=== PATIENT | female | born 1935 | race Hispanic/Latino ===

== ENCOUNTER 2016-12-19 19:38 | Inpatient (IN) | payer MEDICARE, OTHER ==
[2016-12-19 19:38] VITALS: BMI 28.7
--- NOTE | 2016-12-19 20:56 | C.PDOC ---
History Of Present Illness 81 y/o female presents to ED with complaints of dizziness since yesterday while she was walking. Patient denies nausea, vomiting, ringing in ear, chest pain, palpitation, sob or any other complaints at this time. Time Seen by Provider: 12/19/16 20:56 Chief Complaint (Nursing): Dizziness/Lightheaded History Per: Patient History/Exam Limitations: no limitations Onset/Duration Of Symptoms: Days Current Symptoms Are (Timing): Still Present Activity At Onset Of Symptoms: Walking Associated Symptoms Preceding Syncopal Episode: No Predromal Symptoms (Sudden Onset) Seizure Or Post-ictal Symptoms: None Possible Causative Factor(s): Vertigo, Lightheaded W/Standing - Symptoms Of CVA Associated Symptoms: Decreased Ability To Walk (due to dizziness). denies: Impaired Speech, Seizure Activity Recent Aspirin Use: No Current Coumadin Use?: No Recent Head Trauma: No Past Medical History Reviewed: Historical Data, Nursing Documentation, Vital Signs Vital Signs: Last Vital Signs Temp 97.9 F 12/19/16 19:41 Pulse 72 12/19/16 19:41 Resp 20 12/19/16 19:41 BP 136/77 12/19/16 19:41 Pulse Ox 98 12/19/16 21:49 - Medical History PMH: Anxiety, Arthritis, Back Problems, HTN Denies: Chronic Kidney Disease Surgical History: Cholecystectomy - [facility] TETANUS TOXOID ADMINIST (09/15/14) Family History: States: No Known Family Hx - Social History Hx Tobacco Use: No Hx Alcohol Use: No Hx Substance Use: No - Immunization History Hx Tetanus Toxoid Vaccination: No Hx Influenza Vaccination: No Hx Pneumococcal Vaccination: No Review Of Systems Constitutional: Negative for: Fever, Chills ENT: Negative for: Throat Pain Cardiovascular: Negative for: Chest Pain, Palpitations Respiratory: Negative for: Shortness of Breath Gastrointestinal: Negative for: Nausea, Vomiting Genitourinary: Negative for: Dysuria Musculoskeletal: Negative for: Back Pain Skin: Negative for: Rash Neurological: Positive for: Dizziness. Negative for: Weakness, Numbness Psych: Negative for: Anxiety Physical Exam - Physical Exam Appears: Non-toxic, No Acute Distress Skin: Warm, Dry Head: Normacephalic Eye(s): bilateral: Normal Inspection, Other (Arcus senulus) Oral Mucosa: Moist Neck: Supple Chest: Symmetrical Cardiovascular: Rhythm Regular Respiratory: No Rales, No Rhonchi, No Wheezing Gastrointestinal/Abdominal: Soft, No Tenderness, No Guarding, No Rebound Back: No CVA Tenderness Extremity: No Tenderness Extremity: Bilateral: Atraumatic, No Pedal Edema, Normal Color And Temperature Pulses: Left Dorsalis Pedis: Normal, Right Dorsalis Pedis: Normal Neurological/Psych: Oriented x3, Normal Speech, Normal Cognition, Other (No nystagmus, Negative romberg) Gait: Unsteady ED Course And Treatment - Laboratory Results Result Diagrams: 12/19/16 21:03 12/19/16 21:03 ECG: Interpreted By Me, Viewed By Me ECG Rhythm: Sinus Rhythm (74), R BBB, PVC, Nonspecific Changes O2 Sat by Pulse Oximetry: 98 (RA) Pulse Ox Interpretation: Normal NIHSS Stroke Scale - Date/Time Evaluation Performed Date Performed: 12/19/16 Time Performed: 21:00 When Was NIHSS Performed: Baseline - How Severe is the Stoke Level of Consciousness: 0=Alert LOC to Questions: 0=Both comments correct LOC to commands: 0=Obeys both correctly Best Gaze: 0=Normal Visual: 0=No visual loss Facial: 0=Normal Motor Arm - Left: 0=No drift Motor Arm - Right: 0=No drift Motor Leg - Left: 0=No drift Motor Leg - Right: 0=No drift Limb Ataxia: 0=Absent Sensory: 0=Normal Best Language: 0=No aphasia Dysarthia: 0=Normal articulation Extinction & Inattention (Neglect): 0=Normal, no object Score: 0 Severity Of Stroke: 0= No Stroke Disposition Discussed With : Cuauhtemoc Wallace Comment: accepted the pt on his service and took over the care at 11:15 PM Doctor Will See Patient In The: ED Counseled Patient/Family Regarding: Studies Performed, Diagnosis - Disposition Disposition: HOSPITALIZED Disposition Time: 20:56 Condition: FAIR Forms: [facility] (Upper Sorbian) - POA Present On Arrival: None - Clinical Impression Clinical Impression: Dizziness, Vertigo, Ambulatory dysfunction - Scribe Statement The provider has reviewed the documentation as recorded by the Rayshawnibchip Pablo All medical record entries made by the Scribe were at my direction and personally dictated by me. I have reviewed the chart and agree that the record accurately reflects my personal performance of the history, physical exam, medical decision making, and the department course for this patient. I have also personally directed, reviewed, and agree with the discharge instructions and disposition. Decision To Admit - Pt Status Changed To: Hospital Disposition Of: Inpatient - Admit Certification Admit to Inpatient:: After my assessment, the patient will require hospitalization for at least two midnights. This is because of the severity of symptoms shown, intensity of services needed, and/or the medical risk in this patient being treated as an outpatient. - InPatient: Physician Admission Certification: I certify that this patient requires 2 or more midnights of care for the following reason:: After my assessment, the patient will require hospitalization for at least two midnights. This is because of the severity of symptoms shown, intensity of services needed, and/or the medical risk in this patient being treated as an outpatient. - . Bed Request Type: Regular Admitting Physician: Cuauhtemoc Wallace Patient Diagnosis: Dizziness, Vertigo, Ambulatory dysfunction
[2016-12-19 21:08] LABS: BASO % 0.6 % (0.0-2.0); EOS # 0.2 K/uL (0.0-0.7); EOS % 2.8 % (0.0-4.0); LYMPH # 2.4 K/uL (1.0-4.3); LYMPH % 37.4 % (20.0-40.0); MEAN CELL VOLUME 96.2 fL (81.0-99.0); MEAN CORPUSCULAR HEMOGLOBIN 31.3 pg (27.0-31.0); MEAN CORPUSCULAR HGB CONC 32.5 g/dL (33.0-37.0); MEAN PLATELET VOLUME 8.2 fL (7.2-11.7); MONO # 0.8 K/uL (0.0-0.8); MONO % 11.9 % (0.0-10.0); RED CELL DISTRIBUTION WIDTH 13.8 % (11.5-14.5); WHITE BLOOD COUNT 6.4 K/uL (4.8-10.8)
[2016-12-19] MEDS: Sodium Chloride 0.9% 1,000 ML IV SCH (21:10)
[2016-12-19 21:12] LABS: URINE BILIRUBIN NEGATIVE (NEGATIVE); URINE BLOOD 1+ (NEGATIVE); URINE COLOR Straw (YELLOW); URINE GLUCOSE (UA) NORMAL (Normal); URINE KETONE NEGATIVE (NEGATIVE); URINE LEUKOCYTE ESTERASE 1+ Leu/uL (Negative); URINE PROTEIN NEGATIVE (NEGATIVE); URINE UROBILINOGEN NORMAL mg/dL (0.2-1.0); WBC URINE 3 /hpf (0-5)
[2016-12-19 21:15] LABS: RBC URINE 4 /hpf (0-3)
[2016-12-19 21:29] LABS: CHLORIDE 100 mmol/L (98-107)
[2016-12-19 21:30] LABS: SODIUM 135 mmol/L (132-148)
[2016-12-19 21:31] LABS: INR 1.1
[2016-12-19 21:32] LABS: ALB/GLOB RATIO 0.9 (1.0-2.1); AST/SGOT 62 U/L (14-36); BILIRUBIN,TOTAL 0.9 mg/dL (0.2-1.3); CARBON DIOXIDE 25 mmol/L (22-30); GFR AFRICAN-AMERICAN > 60; TOTAL PROTEIN 7.6 g/dL (6.3-8.3)
[2016-12-19 21:33] LABS: ALKALINE PHOSPHATASE 70 U/L (38-126); ALT/SGPT 25 U/L (9-52); BLOOD UREA NITROGEN 18 mg/dL (7-17); CALCIUM 8.9 mg/dl (8.6-10.4); GLUCOSE,RANDOM 96 mg/dL (65-105)
--- NOTE | 2016-12-19 21:57 | CT ---
EXAM: CT Head Without Intravenous Contrast CLINICAL HISTORY: 81 years old, female; Signs and symptoms; Dizziness; Additional info: R/O bleed, dizziness TECHNIQUE: Axial computed tomography images of the head/brain without intravenous contrast. All CT scans at this facility use one or more dose reduction techniques, viz.: automated exposure control; ma/kV adjustment per patient size (including targeted exams where dose is matched to indication; i.e. head); or iterative reconstruction technique. COMPARISON: CT - HEAD W/O CONTRAST 11/01/2014 10:53:18 PM FINDINGS: Brain: Mild atrophy. No intracranial hemorrhage. Small dural calcifications and/or calcified meningiomas along falx, RIGHT occipital region, stable. Few scattered foci of decreased attenuation within periventricular/subcortical white matter. No definite edema. Ventricles: No hydrocephalus. Bones/joints: No acute fracture. Soft tissues: Unremarkable. Vasculature: Mild atherosclerotic disease of intracranial arteries. Sinuses: No acute sinusitis. Mastoid air cells: No mastoid effusion. Orbits: Unremarkable as visualized. IMPRESSION: 1. Nonspecific white matter changes. Acute infarction may be CT occult within first 24 hours. If a focal deficit persists, consider followup CT or MRI for further evaluation. 2. Incidental/non-acute findings are described above.
[2016-12-20] MEDS ORDERED: Albuterol-Ipratrop 3 mg / 0.5 (3 ml) UD INH STA (00:40)
--- NOTE | 2016-12-20 01:01 | CP.PCM.HP ---
<Gumaro RYANLupis - Last Filed: 12/20/16 01:06> History of Present Illness - History of Present Illness History of Present Illness: cc: " I feel dizzy" Patient is an 81 year old female with PMHx of HTN and vertigo who presents with complaint of dizziness. Patient states this dizziness began yesterday while sitting at home and was worsened with walking. Patient states she was on meclizine in the past but has not been taking it for some time as her symptoms had resolved. Patient states she took a meclizine yesterday but did not have any relief of symptoms which prompted her ER visit today. Patient denies falls but states her body feels unsteady. Patient also complains of sore throat and states she has been feeling ill for the past week. Patient denies cough, shortness of breath. Patient lives with a friend who is also sick. Patient states she took Vicks Formula 44 for her symptoms but has not had much relief. Patient denies palpitations, chest pain, nausea, vomiting, dysuria, abdominal pain. PMD: Yesy PMHx: HTN, vertigo Meds: losartan 25, pt unsure of dose of carvedilol, multivitamins PSHx: cholecystectomy FamHx: denies Social: lives with friend, ambulates without assistive devices, independent in ADLs, denies tobacco, alcohol, drugs Present on Admission - Present on Admission Any Indicators Present on Admission: No Review of Systems - Constitutional Constitutional: absent: Chills, Fever - EENT Eyes: absent: Change in Vision Nose/Mouth/Throat: absent: Nasal Congestion, Sinus Pressure - Cardiovascular Cardiovascular: absent: Chest Pain, Dyspnea, Edema, Lightheadedness, Palpitations, Pedal Edema, Syncope - Respiratory Respiratory: Other (chest tightness). absent: Cough, Excessive Mucous Production - Gastrointestinal Gastrointestinal: absent: Abdominal Pain, Nausea, Vomiting - Genitourinary Genitourinary: absent: Difficulty Urinating - Musculoskeletal Musculoskeletal: absent: Back Pain - Neurological Neurological: Disequilibrium, Dizziness. absent: Focal Weakness Past Patient History - Past Medical History & Family History Past Medical History?: Yes - Past Social History Smoking Status: Never Smoked - CARDIAC Hx Hypertension: Yes - PULMONARY Hx Respiratory Disorders: No - NEUROLOGICAL Hx Neurological Disorder: No - HEENT Hx Cataracts: Yes (with surgery long time ago) - RENAL Hx Chronic Kidney Disease: No - ENDOCRINE/METABOLIC Hx Endocrine Disorders: No - HEMATOLOGICAL/ONCOLOGICAL Hx Blood Disorders: No - INTEGUMENTARY Hx Dermatological Problems: No - MUSCULOSKELETAL/RHEUMATOLOGICAL Hx Arthritis: Yes - GASTROINTESTINAL Hx Gastrointestinal Disorders: No - GENITOURINARY/GYNECOLOGICAL Hx Genitourinary Disorders: No - PSYCHIATRIC Hx Anxiety: Yes Hx Substance Use: No - SURGICAL HISTORY Hx Cholecystectomy: Yes - ANESTHESIA Hx Anesthesia: No Hx Anesthesia Reactions: No Hx Malignant Hyperthermia: No Meds Allergies/Adverse Reactions: Allergies Allergy/AdvReac Type Severity Reaction Status Date / Time No Known Allergies Allergy Verified 12/19/16 19:46 Physical Exam - Constitutional Appears: Non-toxic, No Acute Distress - Head Exam Head Exam: ATRAUMATIC, NORMOCEPHALIC - Eye Exam Eye Exam: EOMI. absent: Nystagmus Additional comments: cataracts b/l - ENT Exam ENT Exam: Mucous Membranes Moist - Respiratory Exam Respiratory Exam: Wheezes, NORMAL BREATHING PATTERN. absent: Respiratory Distress - Cardiovascular Exam Cardiovascular Exam: REGULAR RHYTHM, +S1, +S2 - GI/Abdominal Exam GI & Abdominal Exam: Normal Bowel Sounds, Soft. absent: Tenderness - Extremities Exam Extremities exam: Positive for: normal inspection. Negative for: calf tenderness, pedal edema - Neurological Exam Neurological exam: Alert, CN II-XII Intact, Normal Gait Additional comments: Rhomberg negative H in space induces dizziness - Psychiatric Exam Psychiatric exam: Normal Affect - Skin Skin Exam: Dry, Warm Results - Vital Signs Recent Vital Signs: Last Vital Signs Temp 98 F 12/20/16 00:35 Pulse 68 12/20/16 00:35 Resp 16 12/20/16 00:35 BP 125/68 12/20/16 00:35 Pulse Ox 98 12/20/16 00:35 - Labs Result Diagrams: 12/19/16 21:03 12/19/16 21:03 Assessment & Plan (1) Dizziness Assessment and Plan: Patient with prior episode of vertigo in 2014 CT head with non-specific white matter changes, mild atrophy, no hydrocephalus, no hemorrhage Orthostatics: laying: HR 65, BP 126/59 sitting: HR 68, BP 148/63 standing: HR 71, BP 149/64 will rule out cardiac origin will check new echo will check troponins 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 Wallace Status: Acute <Cuauhtemoc Wallace - Last Filed: 12/20/16 06:26> Results - Vital Signs Recent Vital Signs: Last Vital Signs Temp 97.5 F L 12/20/16 00:56 Pulse 68 12/20/16 00:56 Resp 20 12/20/16 00:56 BP 137/77 12/20/16 00:56 Pulse Ox 99 12/20/16 03:57 - Labs Result Diagrams: 12/19/16 21:03 12/19/16 21:03 Labs: Laboratory Results - last 24 hr 12/20/16 02:10 Troponin I < 0.0120 Assessment & Plan - Date & Time Date: 12/20/16 (I have seen and examined the patient. I agree with the findings and plan of care as documented by Dr. Valiente. Patient with dizziness. CT head negative. Meclizine for now. PT/OT. Also with wheeze. Duonebs. Follow up official CXR report. Monitor for acute changes.) Time: 06:25 Attending/Attestation - Attestation I have personally seen and examined this patient.: Yes I have fully participated in the care of the patient.: Yes I have reviewed all pertinent clinical information: Yes
[2016-12-20] MEDS: Sodium Chloride 0.9% 1,000 ML IV SCH ×2 (06:50→17:44)
[2016-12-20 07:11] LABS: CHLORIDE 105 mmol/L (98-107); POTASSIUM 4.5 mmol/L (3.6-5.2); SODIUM 141 mmol/L (132-148)
[2016-12-20 07:14] LABS: ALB/GLOB RATIO 0.9 (1.0-2.1); ALKALINE PHOSPHATASE 63 U/L (38-126); ALT/SGPT 36 U/L (9-52); AST/SGOT 33 U/L (14-36); BILIRUBIN,TOTAL 0.6 mg/dL (0.2-1.3); BLOOD UREA NITROGEN 12 mg/dL (7-17); CALCIUM 8.3 mg/dl (8.6-10.4); CARBON DIOXIDE 28 mmol/L (22-30); GFR AFRICAN-AMERICAN > 60; GLUCOSE,RANDOM 88 mg/dL (65-105); TOTAL PROTEIN 6.5 g/dL (6.3-8.3)
[2016-12-20 07:15] LABS: BASO % 0.5 % (0.0-2.0); EOS # 0.1 K/uL (0.0-0.7); EOS % 2.6 % (0.0-4.0); HEMATOCRIT 36.9 % (34.0-47.0); LYMPH # 2.1 K/uL (1.0-4.3); LYMPH % 37.1 % (20.0-40.0); MEAN CELL VOLUME 96.7 fL (81.0-99.0); MEAN CORPUSCULAR HGB CONC 33.1 g/dL (33.0-37.0); MEAN PLATELET VOLUME 7.9 fL (7.2-11.7); MONO # 0.6 K/uL (0.0-0.8); MONO % 10.7 % (0.0-10.0); RED CELL DISTRIBUTION WIDTH 13.4 % (11.5-14.5); WHITE BLOOD COUNT 5.6 K/uL (4.8-10.8)
[2016-12-20] MEDS: Albuterol-Ipratrop 3 mg / 0.5 (3 ml) UD INH PRN ×2 (07:28→12:50)
--- NOTE | 2016-12-20 08:49 | RAD ---
PROCEDURE: CHEST RADIOGRAPH, 1 VIEW HISTORY: SOB COMPARISON: 09/14/2015. FINDINGS: LUNGS: There are low lung volumes. There is a linear scar in the right lower lobe. No focal consolidation. PLEURA: No pneumothorax or pleural fluid seen. CARDIOVASCULAR: Normal. OSSEOUS STRUCTURES: No significant abnormalities. VISUALIZED UPPER ABDOMEN: Normal. OTHER FINDINGS: None. IMPRESSION: No active pulmonary disease.
[2016-12-20] MEDS: Enoxaparin 30 mg Syringe SC SCH (10:51)
[2016-12-20 16:20] VITALS: RESP 20
--- NOTE | 2016-12-20 21:15 | CP.PCM.PN ---
Subjective - Date & Time of Evaluation Date of Evaluation: 12/20/16 Time of Evaluation: 21:13 - Subjective Subjective: PGY1 Note for Dr. Castro HPI: 81 F Belgian speaking patient examined at bedside. Patient presents with episodes of dizziness. The episodes began yesterday afternoon when she tried to stand up from a seated position. Patient states that the episodes feel as if she is losing her balance and feeling like she will fall over. When ask if the room starts to spin the patient stated that she only feels as if she cant steady herself. Patient denies taking any medications for the episodes at home. Standing and walking make the symptoms worse. Patient also complains of left leg pain. It began "a few months ago" and has been waxing and waning. There are no alleviating or remitting factors noted.Patient describes the pain as cramping. Patient denies n/v/f/c/SOB/pain in chest/changes in vision. Objective - Vital Signs/Intake and Output Vital Signs (last 24 hours): Temp Pulse Resp BP Pulse Ox 98.2 F 88 20 125/54 L 95 12/20/16 16:00 12/20/16 16:00 12/20/16 16:00 12/20/16 16:00 12/20/16 16:00 Intake and Output: 12/20/16 12/21/16 18:59 06:59 Intake Total 400 Balance 400 - Medications Medications: Current Medications Albuterol/Ipratropium (Duoneb 3 Mg/0.5 Mg (3 Ml) Ud) 3 ml INH RQ4 PRN PRN Reason: Shortness of Breath Last Admin: 12/20/16 12:50 Dose: 3 ml Enoxaparin Sodium (Lovenox) 30 mg SC DAILY [facility] Last Admin: 12/20/16 10:51 Dose: 30 mg Famotidine (Pepcid) 20 mg PO DAILY [facility] Last Admin: 12/20/16 09:24 Dose: 20 mg Sodium Chloride (Sodium Chloride 0.9%) 1,000 mls @ 100 mls/hr IV .Q10H [facility] Last Admin: 12/20/16 17:44 Dose: 100 mls/hr Losartan Potassium (Cozaar) 25 mg PO DAILY [facility] Last Admin: 12/20/16 09:24 Dose: 25 mg Meclizine HCl (Antivert) 25 mg PO TID [facility] Last Admin: 12/20/16 17:43 Dose: 25 mg Pneumococcal Polyvalent Vaccine (Pneumovax 23 Vaccine) 0.5 ml IM .ONCE ONE Stop: 12/22/16 10:01 - Labs Labs: 12/20/16 06:51 12/20/16 06:50 PT 11.9 SECONDS (9.7-12.2) 12/19/16 21:16 INR 1.1 12/19/16 21:16 APTT 31 SECONDS (21-34) 12/19/16 21:16 - Constitutional Appears: Well, No Acute Distress - Head Exam Head Exam: ATRAUMATIC, NORMAL INSPECTION, NORMOCEPHALIC - Eye Exam Eye Exam: EOMI - ENT Exam ENT Exam: Mucous Membranes Moist - Respiratory Exam Respiratory Exam: Clear to Ausculation Bilateral, NORMAL BREATHING PATTERN - Cardiovascular Exam Cardiovascular Exam: REGULAR RHYTHM - GI/Abdominal Exam GI & Abdominal Exam: Soft. absent: Distended, Guarding, Tenderness - Extremities Exam Extremities Exam: Calf Tenderness (l. leg), Tenderness (l. leg). 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
[2016-12-21] MEDS: Sodium Chloride 0.9% 1,000 ML IV SCH ×4 (04:00→23:15)
[2016-12-21] MEDS: Albuterol-Ipratrop 3 mg / 0.5 (3 ml) UD INH PRN (07:10)
--- NOTE | 2016-12-21 10:14 | MRI ---
PROCEDURE: MRI BRAIN WITHOUT CONTRAST HISTORY: R/O cerebellar stroke COMPARISON: CT head without contrast from 12/19/2016. TECHNIQUE: Multiplanar, multisequence MR images of the brain were obtained without intravenous contrast enhancement. FINDINGS: HEMORRHAGE: None DWI: No evidence of an acute or early subacute infarction. BRAIN PARENCHYMA: There are moderate chronic microangiopathic changes. There is no mass, mass effect or abnormal extra-axial fluid collection. The midline sagittal structures are normal. There is a partially empty sella. VENTRICLES: There is moderate age-related global parenchymal volume loss and proportionate enlargement of the ventricles and cortical sulci. There are prominent perivascular spaces in the basal ganglia. CRANIUM: There is normal bone marrow signal pattern. ORBITS: Grossly unremarkable. PARANASAL SINUSES/MASTOIDS: Predominantly clear. VASCULAR SYSTEM: There are normal signal voids in the larger intracranial arteries. OTHER FINDINGS: None. IMPRESSION: 1. No acute intracranial abnormality. Specifically, no evidence of acute infarction. 2. Moderate chronic microangiopathic changes and moderate age-related global parenchymal volume loss.
[2016-12-21] MEDS: Enoxaparin 30 mg Syringe SC SCH (10:50)
--- NOTE | 2016-12-21 16:29 | CP.PCM.PN ---
Subjective - Date & Time of Evaluation Date of Evaluation: 12/21/16 Time of Evaluation: 16:26 - Subjective Subjective: PGY-[address] Castro HPI: 81 F Guinean speaking patient seen at beside. Patient complains of dizziness whenever she sits up or gets up to go to the bathroom. Patient reports no dizziness when reclining in bed. Patient reports no other complaints and no adverse events overnight. Objective - Vital Signs/Intake and Output Vital Signs (last 24 hours): Temp Pulse Resp BP Pulse Ox 98.4 F 72 20 131/47 L 94 L 12/21/16 15:00 12/21/16 15:00 12/21/16 15:00 12/21/16 15:00 12/21/16 15:00 Intake and Output: 12/21/16 12/21/16 06:59 18:59 Intake Total 2150 Output Total 500 Balance 1650 - Medications Medications: Current Medications Albuterol/Ipratropium (Duoneb 3 Mg/0.5 Mg (3 Ml) Ud) 3 ml INH RQ4 PRN PRN Reason: Shortness of Breath Last Admin: 12/21/16 07:10 Dose: 3 ml Enoxaparin Sodium (Lovenox) 30 mg SC DAILY [facility] Last Admin: 12/21/16 10:50 Dose: 30 mg Famotidine (Pepcid) 20 mg PO DAILY [facility] Last Admin: 12/21/16 10:50 Dose: 20 mg Sodium Chloride (Sodium Chloride 0.9%) 1,000 mls @ 100 mls/hr IV .Q10H [facility] Last Admin: 12/21/16 13:41 Dose: Not Given Losartan Potassium (Cozaar) 25 mg PO DAILY [facility] Last Admin: 12/21/16 10:50 Dose: 25 mg Meclizine HCl (Antivert) 25 mg PO Q6 [facility] Pneumococcal Polyvalent Vaccine (Pneumovax 23 Vaccine) 0.5 ml IM .ONCE ONE Stop: 12/22/16 10:01 - Labs Labs: 12/20/16 06:51 12/20/16 06:50 PT 11.9 SECONDS (9.7-12.2) 12/19/16 21:16 INR 1.1 12/19/16 21:16 APTT 31 SECONDS (21-34) 12/19/16 21:16 - Constitutional Appears: Well, Non-toxic, No Acute Distress - Head Exam Head Exam: ATRAUMATIC, NORMAL INSPECTION, NORMOCEPHALIC - Eye Exam Eye Exam: EOMI - ENT Exam ENT Exam: Mucous Membranes Moist, Normal Exam Additional comments: Cerumun impaction b/l. Reproducible dizziness with movement of the head - Respiratory Exam Respiratory Exam: Clear to Ausculation Bilateral - Cardiovascular Exam Cardiovascular Exam: REGULAR RHYTHM - GI/Abdominal Exam GI & Abdominal Exam: Soft. 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 Leg Pain * US Doppler - F/U Wheezing on auscultation starting duonebs chest xray - no active pulmonary disease influenza a/b - negative Abnormal urinalysis patient asymptomatic F/U culture Hypertension losartan 25mg Prophylactic measure pepcid 20mg SCDs PT/ OT
--- NOTE | 2016-12-21 18:26 | CP.PCM.CON ---
History of Present Illness - History of Present Illness History of Present Illness: Mrs. Kang is an 81-year-old woman with a past medical history of vertigo, who usually takes meclizine when she has symptoms, and it helps. Yesterday, she developed symptoms of the sensation that the room was moving and spinning when she moved her head or laid down. She took meclizine, but it did not help. She presented to the ED for assistance. Today, she states that she is feeling better, but is still somewhat vertiginous. She was continued on meclizine. I was consulted to assist from a neurological standpoint. She denied vomiting, but has slight nausea. She does not have visual changes, weakness or sensory changes. MRI of the brain did not show any evidence of infarction. Review of Systems - Review of Systems All systems: reviewed and no additional remarkable complaints except Past Patient History - Past Medical History & Family History Past Medical History?: Yes - Past Social History Smoking Status: Never Smoked - CARDIAC Hx Cardiac Disorders: Yes Hx Hypertension: Yes - PULMONARY Hx Respiratory Disorders: No - NEUROLOGICAL Hx Neurological Disorder: No - HEENT Hx HEENT Problems: Yes Hx Cataracts: Yes (with surgery long time ago) - RENAL Hx Chronic Kidney Disease: No - ENDOCRINE/METABOLIC Hx Endocrine Disorders: No - HEMATOLOGICAL/ONCOLOGICAL Hx Blood Disorders: No - INTEGUMENTARY Hx Dermatological Problems: No - MUSCULOSKELETAL/RHEUMATOLOGICAL Hx Arthritis: Yes - GASTROINTESTINAL Hx Gastrointestinal Disorders: No - GENITOURINARY/GYNECOLOGICAL Hx Genitourinary Disorders: No - PSYCHIATRIC Hx Psychophysiologic Disorder: Yes Hx Anxiety: Yes Hx Substance Use: No - SURGICAL HISTORY Hx Surgeries: Yes Hx Cholecystectomy: Yes - ANESTHESIA Hx Anesthesia: No Hx Anesthesia Reactions: No Hx Malignant Hyperthermia: No Has any member of the family had a problem w/ anesthesia?: No Meds Allergies/Adverse Reactions: Allergies Allergy/AdvReac Type Severity Reaction Status Date / Time No Known Allergies Allergy Verified 12/19/16 19:46 - Medications Medications: Current Medications Albuterol/Ipratropium (Duoneb 3 Mg/0.5 Mg (3 Ml) Ud) 3 ml INH RQ4 PRN PRN Reason: Shortness of Breath Last Admin: 12/21/16 07:10 Dose: 3 ml Enoxaparin Sodium (Lovenox) 30 mg SC DAILY [facility] Last Admin: 08/18/17 10:50 Dose: 30 mg Famotidine (Pepcid) 20 mg PO DAILY [facility] Last Admin: 12/21/16 10:50 Dose: 20 mg Sodium Chloride (Sodium Chloride 0.9%) 1,000 mls @ 100 mls/hr IV .Q10H [facility] Last Admin: 12/21/16 18:03 Dose: 100 mls/hr Losartan Potassium (Cozaar) 25 mg PO DAILY [facility] Last Admin: 12/21/16 10:50 Dose: 25 mg Meclizine HCl (Antivert) 25 mg PO Q6 [facility] Last Admin: 12/21/16 17:57 Dose: 25 mg Pneumococcal Polyvalent Vaccine (Pneumovax 23 Vaccine) 0.5 ml IM .ONCE ONE Stop: 12/22/16 10:01 Physical Exam - Constitutional Appears: Well - Head Exam Head Exam: ATRAUMATIC, NORMAL INSPECTION, NORMOCEPHALIC - Eye Exam Eye Exam: EOMI, Normal appearance, PERRL - ENT Exam ENT Exam: Mucous Membranes Moist, Normal Exam - Neck Exam Neck exam: Positive for: Normal Inspection - Respiratory Exam Respiratory Exam: Clear to Auscultation Bilateral, NORMAL BREATHING PATTERN - Cardiovascular Exam Cardiovascular Exam: REGULAR RHYTHM, +S1, +S2 - GI/Abdominal Exam GI & Abdominal Exam: Normal Bowel Sounds, Soft. absent: Tenderness - Rectal Exam Rectal Exam: Deferred - Extremities Exam Extremities exam: Positive for: normal inspection - Back Exam Back exam: NORMAL INSPECTION - Neurological Exam Neurological exam: Alert, CN II-XII Intact, Normal Gait, Oriented x3, Reflexes Normal Additional comments: Nystagmus with head turning and Eyal-Hallpike noted greater when head turned to the right. Results - Vital Signs Recent Vital Signs: Last Vital Signs Temp 98.4 F 12/21/16 15:00 Pulse 72 12/21/16 15:00 Resp 20 12/21/16 15:00 BP 131/47 L 12/21/16 15:00 Pulse Ox 94 L 12/21/16 15:00 - Labs Result Diagrams: 12/20/16 06:51 12/20/16 06:50 Labs: Laboratory Results - last 24 hr 12/20/16 19:49 Total Creatine Kinase 60 CK-MB (Mass) 1.54 Troponin I, Quant < 0.0120 Assessment & Plan (1) Vertigo Assessment and Plan: Likely has benign positional vertigo, which is exacerbated by head turning and reclined position. Since meclizine is not helping, will try Valium 2 mg Q12 PRN vertigo. PT/OT is recommended for Eply maneuver for treatment and vestibular rehab. Thank you. Status: Acute Priority: High
[2016-12-22] MEDS: Sodium Chloride 0.9% 1,000 ML IV SCH ×3 (05:42→20:03)
[2016-12-22] MEDS: Albuterol-Ipratrop 3 mg / 0.5 (3 ml) UD INH PRN ×2 (08:13→12:00)
[2016-12-22] MEDS ORDERED: Pneumococcal 23-Valent Vaccine IM ONE (10:00)
[2016-12-22] MEDS: Enoxaparin 30 mg Syringe SC SCH (10:36)
--- NOTE | 2016-12-22 12:42 | CP.PCM.PN ---
<Fausto Perez - Last Filed: 12/22/16 12:42> Subjective - Date & Time of Evaluation Date of Evaluation: 12/22/16 Time of Evaluation: 12:42 - Subjective Subjective: PGY1 Note for Dr. Hummel HPi: Patient seen and examined at bedside. Doing well with no complaints at this time. She is sitting up and eating with no problem. She states that she is no longer dizzy but per nurse she told her she was dizzy this AM when she sat up. I told her that I spoke to her son and daughter yesterday regarding her condition and told them that we changed the frequency of her antivert to see if it would resolve her nausea. Objective - Vital Signs/Intake and Output Vital Signs (last 24 hours): Temp Pulse Resp BP Pulse Ox 97.8 F 72 20 149/74 96 12/22/16 08:24 12/22/16 08:24 12/22/16 08:24 12/22/16 08:24 12/22/16 08:24 Intake and Output: 12/22/16 12/22/16 06:59 18:59 Intake Total 1900 Balance 1900 - Medications Medications: Current Medications Albuterol/Ipratropium (Duoneb 3 Mg/0.5 Mg (3 Ml) Ud) 3 ml INH RQ4 PRN PRN Reason: Shortness of Breath Last Admin: 12/22/16 08:13 Dose: 3 ml Diazepam (Valium) 2 mg PO Q12 PRN PRN Reason: vertigo Enoxaparin Sodium (Lovenox) 30 mg SC DAILY [facility] Last Admin: 12/22/16 10:36 Dose: 30 mg Famotidine (Pepcid) 20 mg PO DAILY [facility] Last Admin: 12/22/16 10:36 Dose: 20 mg Sodium Chloride (Sodium Chloride 0.9%) 1,000 mls @ 100 mls/hr IV .Q10H [facility] Last Admin: 12/22/16 05:42 Dose: 100 mls/hr Losartan Potassium (Cozaar) 25 mg PO DAILY [facility] Last Admin: 12/22/16 10:36 Dose: 25 mg - Labs Labs: 12/20/16 06:51 12/20/16 06:50 PT 11.9 SECONDS (9.7-12.2) 12/19/16 21:16 INR 1.1 12/19/16 21:16 APTT 31 SECONDS (21-34) 12/19/16 21:16 - Constitutional Appears: Well, Non-toxic, No Acute Distress - Head Exam Head Exam: ATRAUMATIC, NORMAL INSPECTION, NORMOCEPHALIC - Eye Exam Eye Exam: EOMI - ENT Exam ENT Exam: Mucous Membranes Moist - Respiratory Exam Respiratory Exam: Clear to Ausculation Bilateral, NORMAL BREATHING PATTERN - GI/Abdominal Exam GI & Abdominal Exam: Soft, Normal Bowel Sounds. absent: Distended, Tenderness - Neurological Exam Neurological Exam: Alert, Awake, Oriented x3 Additional comments: movement of her head in multiple directions did not produce any dizziness today - Psychiatric Exam Psychiatric exam: Normal Affect, Normal Mood - Skin Skin Exam: Dry, Intact, Normal Color, Warm Assessment and Plan - Assessment and Plan (Free Text) Assessment: Dizziness Patient with prior episode of vertigo in 2014 CT head with non-specific white matter changes, mild atrophy, no hydrocephalus, no hemorrhage Orthostatics: laying: HR 65, BP 126/59 sitting: HR 68, BP 148/63 standing: HR 71, BP 149/64 echo - F/U troponins - negative EKG with old RBBB, new PVCs meclizine 25mg Q6 Neuro (Korya) * Likely has benign positional vertigo * exacerbated by head turning and reclined position * try Valium 2 mg Q12 PRN vertigo - Will start valium if increased dose of Antivert does not help * PT/OT is recommended for Eply maneuver for treatment and vestibular rehab. ENT (Behin) Consulted - F/U reccs Leg Pain * US Doppler - F/U Wheezing on auscultation starting duonebs chest xray - no active pulmonary disease influenza a/b - negative Abnormal urinalysis patient asymptomatic UC - GBS - No tx needed Hypertension losartan 25mg Prophylactic measure pepcid 20mg SCDs PT/ OT <Edgard Hummel - Last Filed: 12/22/16 14:41> Objective - Vital Signs/Intake and Output Vital Signs (last 24 hours): Temp Pulse Resp BP Pulse Ox 97.8 F 72 20 149/74 96 12/22/16 08:24 12/22/16 08:24 12/22/16 08:24 12/22/16 08:24 12/22/16 08:24 Intake and Output: 12/22/16 12/22/16 06:59 18:59 Intake Total 1900 Balance 1900 - Medications Medications: Current Medications Albuterol/Ipratropium (Duoneb 3 Mg/0.5 Mg (3 Ml) Ud) 3 ml INH RQ4 PRN PRN Reason: Shortness of Breath Last Admin: 12/22/16 12:00 Dose: 3 ml Diazepam (Valium) 2 mg PO Q12 PRN PRN Reason: vertigo Enoxaparin Sodium (Lovenox) 30 mg SC DAILY [facility] Last Admin: 12/22/16 10:36 Dose: 30 mg Famotidine (Pepcid) 20 mg PO DAILY [facility] Last Admin: 12/22/16 10:36 Dose: 20 mg Sodium Chloride (Sodium Chloride 0.9%) 1,000 mls @ 100 mls/hr IV .Q10H [facility] Last Admin: 12/22/16 05:42 Dose: 100 mls/hr Losartan Potassium (Cozaar) 25 mg PO DAILY [facility] Last Admin: 12/22/16 10:36 Dose: 25 mg - Labs Labs: 12/20/16 06:51 12/20/16 06:50 PT 11.9 SECONDS (9.7-12.2) 12/19/16 21:16 INR 1.1 12/19/16 21:16 APTT 31 SECONDS (21-34) 12/19/16 21:16 Attending/Attestation - Attestation I have personally seen and examined this patient.: Yes I have fully participated in the care of the patient.: Yes I have reviewed all pertinent clinical information, including history, physical exam and plan: Yes Notes (Text): Medical Attending: Patient was seen and examined by me. Agree with the above note by the resident. The patient reports in the morning had some dizziness - however this went away. Later in the afternoon when I came and saw patient she reported very minimal dizziness. Denied all other things such as chest pain, denied shortness of breath, denied palpitations, denied abdominal pain, During exam I also had the patient get up and walk with me - she was able to stand on her own from bed and walk out of the room and back to bed slowly without my assistance. Her gait was slow however looked normal. MRI was negative. Still pending the echo at this time. thank you Edgard Hummel
--- NOTE | 2016-12-22 18:05 | CARD ---
APPROVED REPORT EKG Measurement Heart [id number] CT 126P50 [id number] <Conclusion> Sinus rhythm with occasional premature ventricular complexes Right bundle branch block Abnormal ECG
--- NOTE | 2016-12-22 20:52 | CON ---
REASON FOR CONSULTATION: Dizziness. REQUESTING PHYSICIAN: admitting physician HISTORY: This is an 81-year-old female, who for the past four days has been having dizziness when she lays back and gets up, it is on and off, lasted few seconds only, also a minute and then resolved by itself. The patient states as she no longer has the dizziness and that it has resolved. PAST MEDICAL HISTORY: As noted in the chart by me. MEDICATIONS: As noted in the chart by me. PHYSICAL EXAMINATION: HEAD: Atraumatic, normocephalic. FACE: Good facial movements bilaterally. CONSTITUTIONAL: Well fed, well nourished. COMMUNICATION: Communicates well and appropriately. EXTERNAL NOSE: No masses. No lesions. No erythema. No edema. INTERNAL NOSE: Deviated septum. No masses. No lesions. No erythema. No edema. ORAL CAVITY AND OROPHARYNX: No masses. No lesions. No erythema. No edema. LIPS AND GUMS: No masses. No lesions. No erythema. No edema. NECK: Supple. THYROID: No thyromegaly, no goiter. LYMPH NODES: No lymphadenopathy of the neck. ASSESSMENT: 1. Dizziness. 2. Deviated septum. PLAN: The patient states the dizziness has resolved. She can followup in the office as an outpatient for a possible VNG. Prudencio York MD MTDD
[2016-12-23] MEDS: Albuterol-Ipratrop 3 mg / 0.5 (3 ml) UD INH PRN (08:10)
--- NOTE | 2016-12-23 10:42 | CP.PCM.PN ---
<HananeFausto knox - Last Filed: 12/23/16 11:31> Subjective - Date & Time of Evaluation Date of Evaluation: 12/23/16 Time of Evaluation: 10:41 - Subjective Subjective: PGY1 Note for Dr. Stevenson HPI: Patient seen and examined at bedside. She wants to go home. She is sitting comfortably watching TV. She is denying any dizziness. I had the patient walk with me around the room and she had no problem. She was able to ambulate independently. I told her that i needed to talk to case management to see if we could get home PT to make her stronger. Patient wants to get stronger so she can go to the gym and go dancing. No complaints at this time. Objective - Vital Signs/Intake and Output Vital Signs (last 24 hours): Temp Pulse Resp BP Pulse Ox 97.9 F 65 20 150/69 97 12/23/16 07:55 12/23/16 07:55 12/23/16 07:55 12/23/16 07:55 12/23/16 07:55 Intake and Output: 12/23/16 12/23/16 06:59 18:59 Intake Total 300 Balance 300 - Medications Medications: Current Medications Albuterol/Ipratropium (Duoneb 3 Mg/0.5 Mg (3 Ml) Ud) 3 ml INH RQ4 PRN PRN Reason: Shortness of Breath Last Admin: 12/23/16 08:10 Dose: 3 ml Diazepam (Valium) 2 mg PO Q12 PRN PRN Reason: vertigo Enoxaparin Sodium (Lovenox) 30 mg SC DAILY [facility] Last Admin: 12/22/16 10:36 Dose: 30 mg Famotidine (Pepcid) 20 mg PO DAILY [facility] Last Admin: 12/22/16 10:36 Dose: 20 mg Losartan Potassium (Cozaar) 25 mg PO DAILY [facility] Last Admin: 12/22/16 10:36 Dose: 25 mg - Labs Labs: 12/20/16 06:51 12/20/16 06:50 PT 11.9 SECONDS (9.7-12.2) 12/19/16 21:16 INR 1.1 12/19/16 21:16 APTT 31 SECONDS (21-34) 12/19/16 21:16 - Constitutional Appears: Well, Non-toxic, No Acute Distress - Head Exam Head Exam: ATRAUMATIC, NORMAL INSPECTION, NORMOCEPHALIC - Eye Exam Eye Exam: EOMI - ENT Exam ENT Exam: Mucous Membranes Moist - Respiratory Exam Respiratory Exam: Clear to Ausculation Bilateral, NORMAL BREATHING PATTERN - Cardiovascular Exam Cardiovascular Exam: REGULAR RHYTHM - GI/Abdominal Exam GI & Abdominal Exam: Soft, Normal Bowel Sounds. absent: Distended, Tenderness - Extremities Exam Extremities Exam: absent: Tenderness - Neurological Exam Neurological Exam: Alert, Awake, Normal Gait, Oriented x3 Additional comments: had the patient walk with me. She walked with no problem and denied any dizziness Assessment and Plan - Assessment and Plan (Free Text) Assessment: Dizziness * Patient with prior episode of vertigo in 2015 * CT head with non-specific white matter changes, mild atrophy, no hydrocephalus , no hemorrhage * Orthostatics: * laying: HR 65, BP 126/59 * sitting: HR 68, BP 148/63 * standing: HR 71, BP 149/64 * echo - F/U * troponins - negative * EKG with old RBBB, new PVCs * meclizine 25mg Q6 * Neuro (Korya) * Likely has benign positional vertigo * exacerbated by head turning and reclined position * try Valium 2 mg Q12 PRN vertigo - Will start valium if increased dose of Antivert does not help * PT/OT is recommended for Eply maneuver for treatment and vestibular rehab * ENT (Jaylen) Consulted - F/U reccs * Vertigo Resolved * Follow up outpatient for possible VNG Leg Pain * US Doppler - F/U Abnormal urinalysis * patient asymptomatic * UC - GBS - No tx needed Hypertension * losartan 25mg Prophylactic measure * pepcid 20mg * SCDs * PT/ OT <Babatunde Stevenson - Last Filed: 12/23/16 17:43> Objective - Vital Signs/Intake and Output Vital Signs (last 24 hours): Temp Pulse Resp BP Pulse Ox 97.9 F 65 20 150/69 97 12/23/16 07:55 12/23/16 07:55 12/23/16 07:55 12/23/16 07:55 12/23/16 07:55 Intake and Output: 12/23/16 12/23/16 06:59 18:59 Intake Total 300 Balance 300 - Medications Medications: Current Medications Albuterol/Ipratropium (Duoneb 3 Mg/0.5 Mg (3 Ml) Ud) 3 ml INH RQ4 PRN PRN Reason: Shortness of Breath Last Admin: 12/23/16 08:10 Dose: 3 ml Diazepam (Valium) 2 mg PO Q12 PRN PRN Reason: vertigo Enoxaparin Sodium (Lovenox) 30 mg SC DAILY [facility] Last Admin: 12/23/16 10:50 Dose: 30 mg Famotidine (Pepcid) 20 mg PO DAILY [facility] Last Admin: 12/23/16 10:50 Dose: 20 mg Losartan Potassium (Cozaar) 25 mg PO DAILY [facility] Last Admin: 12/23/16 10:50 Dose: 25 mg - Labs Labs: 12/20/16 06:51 12/20/16 06:50 PT 11.9 SECONDS (9.7-12.2) 12/19/16 21:16 INR 1.1 12/19/16 21:16 APTT 31 SECONDS (21-34) 12/19/16 21:16 Attending/Attestation - Attestation I have personally seen and examined this patient.: Yes I have fully participated in the care of the patient.: Yes I have reviewed all pertinent clinical information, including history, physical exam and plan: Yes Notes (Text): 12/23/16 17:39 Patient was seen and examined at 3 PM 12/23/16 358 B Exam, assessment and plan were thoroughly gone over with the Resident. Assessments: 1). Dizziness Likely Secondary to Positional Vertigo: much improved. Now on valium and no longer on meclizine 2). Wheezing on prior Exam: none noted on my exam today and Chest X Ray does not show any infiltrate/active disease 3). 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 HTN F/U 2D Echocardiogram report which was performed at 12/20/16 and results still pending Need [employer] to arrange for PT if this possible. Medicine Team will speak with [employer] on 12/24/16. Babatunde Stevenson D.O.
[2016-12-23] MEDS: Enoxaparin 30 mg Syringe SC SCH (10:50)
--- NOTE | 2016-12-24 05:52 | CP.PCM.DIS ---
<Fausto Perez - Last Filed: 12/24/16 10:33> Provider - Provider Date of Admission: 12/19/16 23:17 Attending physician: Cuauhtemoc Wallace MD Primary care physician: Dr. Hayward Consults: Dr. York (ENT) Dr. Luke (Neuro) Time Spent in preparation of Discharge (in minutes): 60 Diagnosis - Discharge Diagnosis (1) Benign paroxysmal positional vertigo Status: Chronic Priority: Medium Hospital Course - Lab Results Lab Results: Micro Results 12/20/16 00:51 Throat Group A Strep Throat Culture - Final NO BETA STREP GROUP A ISOLATED. 12/20/16 10:20 Urine Urine Culture - Final Beta Hemolytic Strep Group B Most Recent Lab Values WBC 5.6 K/uL (4.8-10.8) 12/20/16 06:51 RBC 3.82 Mil/uL (3.80-5.20) 12/20/16 06:51 Hgb 12.2 g/dL (11.0-16.0) 12/20/16 06:51 Hct 36.9 % (34.0-47.0) 12/20/16 06:51 MCV 96.7 fL (81.0-99.0) 12/20/16 06:51 MCH 32.0 pg (27.0-31.0) H 12/20/16 06:51 MCHC 33.1 g/dL (33.0-37.0) 12/20/16 06:51 RDW 13.4 % (11.5-14.5) 12/20/16 06:51 Plt Count 184 K/uL (130-400) 12/20/16 06:51 MPV 7.9 fL (7.2-11.7) 12/20/16 06:51 Neut % (Auto) 49.1 % (50.0-75.0) L 12/20/16 06:51 Lymph % (Auto) 37.1 % (20.0-40.0) 12/20/16 06:51 [place] % (Auto) 10.7 % (0.0-10.0) H 12/20/16 06:51 Eos % (Auto) 2.6 % (0.0-4.0) 12/20/16 06:51 Baso % (Auto) 0.5 % (0.0-2.0) 12/20/16 06:51 Neut # 2.7 K/uL (1.8-7.0) 12/20/16 06:51 Lymph # 2.1 K/uL (1.0-4.3) 12/20/16 06:51 [place] # 0.6 K/uL (0.0-0.8) 12/20/16 06:51 Eos # 0.1 K/uL (0.0-0.7) 12/20/16 06:51 Baso # 0.0 K/uL (0.0-0.2) 12/20/16 06:51 PT 11.9 SECONDS (9.7-12.2) 12/19/16 21:16 INR 1.1 12/19/16 21:16 APTT 31 SECONDS (21-34) 12/19/16 21:16 Sodium 141 mmol/L (132-148) 12/20/16 06:50 Potassium 4.5 mmol/L (3.6-5.2) 12/20/16 06:50 Chloride 105 mmol/L (98-107) 12/20/16 06:50 Carbon Dioxide 28 mmol/L (22-30) 12/20/16 06:50 Anion Gap 12 (10-20) 12/20/16 06:50 BUN 12 mg/dL (7-17) 12/20/16 06:50 Creatinine 0.5 MG/DL (0.7-1.2) L 12/20/16 06:50 Est GFR ( Amer) > 60 12/20/16 06:50 Est GFR (Non-Af Amer) > 60 12/20/16 06:50 Random Glucose 88 mg/dL (65-105) 12/20/16 06:50 Calcium 8.3 mg/dl (8.6-10.4) L 12/20/16 06:50 Magnesium 1.9 mg/dL (1.6-2.3) 12/19/16 21:16 Total Bilirubin 0.6 mg/dL (0.2-1.3) 12/20/16 06:50 AST 33 U/L (14-36) 12/20/16 06:50 ALT 36 U/L (9-52) 12/20/16 06:50 Alkaline Phosphatase 63 U/L (38-126) 12/20/16 06:50 Total Creatine Kinase 60 U/L (30-135) 12/20/16 19:49 CK-MB (Mass) 1.54 ng/mL (0.0-3.38) 12/20/16 19:49 Troponin I < 0.0120 ng/mL (0.00-0.120) 12/20/16 02:10 Troponin I, Quant < 0.0120 ng/mL (0.00-0.120) 12/20/16 19:49 Total Protein 6.5 g/dL (6.3-8.3) 12/20/16 06:50 Albumin 3.2 g/dL (3.5-5.0) L 12/20/16 06:50 Globulin 3.4 gm/dL (2.2-3.9) 12/20/16 06:50 Albumin/Globulin Ratio 0.9 (1.0-2.1) L 12/20/16 06:50 Urine Color Straw (YELLOW) 12/19/16 21:03 Urine Clarity Clear (Clear) 12/19/16 21:03 Urine pH 6.0 (5.0-8.0) 12/19/16 21:03 Ur Specific Cecil 1.005 (1.003-1.030) 12/19/16 21:03 Urine Protein Negative mg/dL (NEGATIVE) 12/19/16 21:03 Urine Glucose (UA) Normal mg/dL (Normal) 12/19/16 21:03 Urine Ketones Negative mg/dL (NEGATIVE) 12/19/16 21:03 Urine Blood 1+ (NEGATIVE) H 12/19/16 21:03 Urine Nitrate Negative (NEGATIVE) 12/19/16 21:03 Urine Bilirubin Negative (NEGATIVE) 12/19/16 21:03 Urine Urobilinogen Normal mg/dL (0.2-1.0) 12/19/16 21:03 Ur Leukocyte Esterase 1+ Andrés/uL (Negative) H 12/19/16 21:03 Urine WBC (Auto) 3 /hpf (0-5) 12/19/16 21:03 Urine RBC (Auto) 4 /hpf (0-3) H 12/19/16 21:03 Influenza Typ A,B (EIA) Negative for flu a/b (NEGATIVE) 12/20/16 00:51 Grp A Beta Strep Ag Negative (NEGATIVE) 12/20/16 00:51 - Hospital Course Hospital Course: Patient is an 81 year old female with PMHx of HTN and vertigo who presents with complaint of dizziness. Patient states this dizziness began yesterday while sitting at home and was worsened with walking. Patient states she was on meclizine in the past but has not been taking it for some time as her symptoms had resolved. Patient states she took a meclizine yesterday but did not have any relief of symptoms which prompted her ER visit today. Patient denies falls but states her body feels unsteady. Patient also complains of sore throat and states she has been feeling ill for the past week. Patient denies cough, shortness of breath. Patient lives with a friend who is also sick. Patient states she took Vicks Formula 44 for her symptoms but has not had much relief. Patient denies palpitations, chest pain, nausea, vomiting, dysuria, abdominal pain. An MRI of the brain was done and was negative for any acute abnormalities. Dr. Luek saw the patient and recommended Valium 2 mg Q12 PRN and PT/OT for Eply maneuver and vestibular rehab Dr. York saw the patient and recommended she follow up in his office as an outpatient for VNG A doppler of the lower extremities was done and it was negative for any clots/ thrombosis A echo was done and the preliminary reading was as follows: Mild aortic insufficiency, EF of 70%, and a mild enlargement of the L. atrium. I walked with the patient several times and she was able to ambulate without assistance. She will be able to go home alone with no assistance with her ADLs necessary. - Date & Time of H&P Date of H&P: 12/20/16 Time of H&P: 00:57 Discharge Exam - Head Exam Head Exam: ATRAUMATIC, NORMAL INSPECTION, NORMOCEPHALIC - Eye Exam Eye Exam: EOMI Pupil Exam: NORMAL ACCOMODATION - ENT Exam ENT Exam: Mucous Membranes Moist - Respiratory Exam Respiratory Exam: NORMAL BREATHING PATTERN. absent: Rales, Rhonchi, Stridor - Cardiovascular Exam Cardiovascular Exam: REGULAR RHYTHM. absent: Diastolic murmur, Gallop, Rubs, Systolic Murmur - GI/Abdominal Exam GI & Abdominal Exam: Normal Bowel Sounds, Soft. absent: Distended, Tenderness - Neurological Exam Neurological exam: Alert, CN II-XII Intact, Normal Gait (Patient was able to ambulate independetly across the room with no assistance), Oriented x3 - Psychiatric Exam Psychiatric exam: Normal Affect, Normal Mood - Skin Skin Exam: Dry, Intact, Normal Color, Warm Discharge Plan - Discharge Medications Prescriptions: Carvedilol 25 mg PO DAILY #30 diaZEpam [Valium] 2 mg PO Q12 PRN #60 tab PRN Reason: vertigo Losartan [Cozaar] 25 mg PO DAILY #30 tab - Follow Up Plan Condition: FAIR Disposition: HOME/ ROUTINE Instructions: Diazepam (By mouth), Losartan (By mouth), Vertigo (DC), How to Choose and Use a Walker (GEN), Dizziness (GEN) Additional Instructions: 1. From a Neurology standpoint, patient is stable and clear for discharge. 2. From a ENT standpoint, patient is stable and clear for discharge. Please follow up with Dr. York in one weeks time for evaluation of your Vertigo. Please call his office to make an appointment. I have attached his office information. 3. From a medical standpoint, patient is stable and clear for discharge. Please follow up with Dr. Hayward in one weeks time for evaluation of your general health. Please call the office to make an appointment. I have attached the office information. 4. If symptoms return or worsen, please come back to the ER. 5. Please adhere to the following prescription instructions: - Valium (Diazepam) 2mg, One tablet by mouth two times per day as needed for vertigo - Cozaar (Losartan) 25mg, One tablet by mouth every day for Hypertension - Carvedilol (Coreg) 25mg, One tablet by mouth every day for Hypertension 6. Please Call number on the back of your health insurance card to set up outpatient Physical therapy. Referrals: Armond Hayward MD [Staff Provider] - Prudencio York MD [Staff Provider] - <Babatunde Stevensno - Last Filed: 12/24/16 19:31> Provider - Provider Date of Admission: 12/19/16 23:17 Attending physician: Cuauhtemoc Wallace MD Hospital Course - Lab Results Lab Results: Micro Results 12/20/16 00:51 Throat Group A Strep Throat Culture - Final NO BETA STREP GROUP A ISOLATED. 12/20/16 10:20 Urine Urine Culture - Final Beta Hemolytic Strep Group B Most Recent Lab Values WBC 5.6 K/uL (4.8-10.8) 12/20/16 06:51 RBC 3.82 Mil/uL (3.80-5.20) 12/20/16 06:51 Hgb 12.2 g/dL (11.0-16.0) 12/20/16 06:51 Hct 36.9 % (34.0-47.0) 12/20/16 06:51 MCV 96.7 fL (81.0-99.0) 12/20/16 06:51 MCH 32.0 pg (27.0-31.0) H 12/20/16 06:51 MCHC 33.1 g/dL (33.0-37.0) 12/20/16 06:51 RDW 13.4 % (11.5-14.5) 12/20/16 06:51 Plt Count 184 K/uL (130-400) 12/20/16 06:51 MPV 7.9 fL (7.2-11.7) 12/20/16 06:51 Neut % (Auto) 49.1 % (50.0-75.0) L 12/20/16 06:51 Lymph % (Auto) 37.1 % (20.0-40.0) 12/20/16 06:51 [place] % (Auto) 10.7 % (0.0-10.0) H 12/20/16 06:51 Eos % (Auto) 2.6 % (0.0-4.0) 12/20/16 06:51 Baso % (Auto) 0.5 % (0.0-2.0) 12/20/16 06:51 Neut # 2.7 K/uL (1.8-7.0) 12/20/16 06:51 Lymph # 2.1 K/uL (1.0-4.3) 12/20/16 06:51 [place] # 0.6 K/uL (0.0-0.8) 12/20/16 06:51 Eos # 0.1 K/uL (0.0-0.7) 12/20/16 06:51 Baso # 0.0 K/uL (0.0-0.2) 12/20/16 06:51 PT 11.9 SECONDS (9.7-12.2) 12/19/16 21:16 INR 1.1 12/19/16 21:16 APTT 31 SECONDS (21-34) 12/19/16 21:16 Sodium 141 mmol/L (132-148) 12/20/16 06:50 Potassium 4.5 mmol/L (3.6-5.2) 12/20/16 06:50 Chloride 105 mmol/L (98-107) 12/20/16 06:50 Carbon Dioxide 28 mmol/L (22-30) 12/20/16 06:50 Anion Gap 12 (10-20) 12/20/16 06:50 BUN 12 mg/dL (7-17) 12/20/16 06:50 Creatinine 0.5 MG/DL (0.7-1.2) L 12/20/16 06:50 Est GFR ( Amer) > 60 12/20/16 06:50 Est GFR (Non-Af Amer) > 60 12/20/16 06:50 Random Glucose 88 mg/dL (65-105) 12/20/16 06:50 Calcium 8.3 mg/dl (8.6-10.4) L 12/20/16 06:50 Magnesium 1.9 mg/dL (1.6-2.3) 12/19/16 21:16 Total Bilirubin 0.6 mg/dL (0.2-1.3) 12/20/16 06:50 AST 33 U/L (14-36) 12/20/16 06:50 ALT 36 U/L (9-52) 12/20/16 06:50 Alkaline Phosphatase 63 U/L (38-126) 12/20/16 06:50 Total Creatine Kinase 60 U/L (30-135) 12/20/16 19:49 CK-MB (Mass) 1.54 ng/mL (0.0-3.38) 12/20/16 19:49 Troponin I < 0.0120 ng/mL (0.00-0.120) 12/20/16 02:10 Troponin I, Quant < 0.0120 ng/mL (0.00-0.120) 12/20/16 19:49 Total Protein 6.5 g/dL (6.3-8.3) 12/20/16 06:50 Albumin 3.2 g/dL (3.5-5.0) L 12/20/16 06:50 Globulin 3.4 gm/dL (2.2-3.9) 12/20/16 06:50 Albumin/Globulin Ratio 0.9 (1.0-2.1) L 12/20/16 06:50 Urine Color Straw (YELLOW) 12/19/16 21:03 Urine Clarity Clear (Clear) 12/19/16 21:03 Urine pH 6.0 (5.0-8.0) 12/19/16 21:03 Ur Specific [place] 1.005 (1.003-1.030) 12/19/16 21:03 Urine Protein Negative mg/dL (NEGATIVE) 12/19/16 21:03 Urine Glucose (UA) Normal mg/dL (Normal) 12/19/16 21:03 Urine Ketones Negative mg/dL (NEGATIVE) 12/19/16 21:03 Urine Blood 1+ (NEGATIVE) H 12/19/16 21:03 Urine Nitrate Negative (NEGATIVE) 12/19/16 21:03 Urine Bilirubin Negative (NEGATIVE) 12/19/16 21:03 Urine Urobilinogen Normal mg/dL (0.2-1.0) 12/19/16 21:03 Ur Leukocyte Esterase 1+ Andrés/uL (Negative) H 12/19/16 21:03 Urine WBC (Auto) 3 /hpf (0-5) 12/19/16 21:03 Urine RBC (Auto) 4 /hpf (0-3) H 12/19/16 21:03 Influenza Typ A,B (EIA) Negative for flu a/b (NEGATIVE) 12/20/16 00:51 Grp A Beta Strep Ag Negative (NEGATIVE) 12/20/16 00:51 Attending/Attestation - Attestation I have personally seen and examined this patient.: Yes I have fully participated in the care of the patient.: Yes I have reviewed all pertinent clinical information, including history, physical exam and plan: Yes Notes (Text): 12/24/16 19:30 Patient was seen and examined with Resident Discharge planning was thoroughly gone over with the Resident. Babatunde Stevenson D.O.
[2016-12-24 08:30] VITALS: BP 132/84; PULSE 100; TEMP 97.9; O2SAT 100
[2016-12-24] MEDS: Enoxaparin 30 mg Syringe SC SCH (10:35)
--- NOTE | 2016-12-24 11:17 | CARD ---
APPROVED REPORT EXAM: Two-dimensional and M-mode echocardiogram with Doppler and color Doppler. Other Information Quality : GoodRhythm : NSR INDICATION Dizziness and Vertigo RISK FACTORS Hypertension 2D DIMENSIONS IVSd0.9 (0.7-1.1cm)LVDd4.4 (3.9-5.9cm) PWd1.0 (0.7-1.1cm)LVDs2.8 (2.5-4.0cm) FS (%) 37.5 %LVEF (%)67.7 (>50%) M-Mode DIMENSIONS Left Atrium (MM)3.88 (2.5-4.0cm)IVSd1.02 (0.7-1.1cm) Aortic Root2.71 (2.2-3.7cm)LVDd4.36 (4.0-5.6cm) Aortic Cusp Exc.1.38 (1.5-2.0cm)PWd0.81 (0.7-1.1cm) FS (%) 38 %LVDs2.70 (2.0-3.8cm) LVEF (%)68 (>50%) Aortic Valve AI P 1/2 [id number] Mitral Valve MV E Bbiadmsh139.4cm/sMV A [place]f980.7cm/sE/A ratio1.0 TDI E/Lateral E'0.0E/Medial E'0.0 Tricuspid Valve TR Peak Clfuciwj956bb/sTR Peak Gr.[id number] LEFT VENTRICLE The left ventricle is normal size. There is normal left ventricular wall thickness. The left ventricular function is normal. The left ventricular ejection fraction is within the normal range. There is normal LV segmental wall motion. Transmitral Doppler flow pattern is Grade I-abnormal relaxation pattern. RIGHT VENTRICLE The right ventricle is normal size. There is normal right ventricular wall thickness. The right ventricular systolic function is normal. ATRIA The left atrium is mildly dilated. The right atrium size is normal. The interatrial septum is intact with no evidence for an atrial septal defect. AORTIC VALVE The aortic valve is moderately sclerotic. There is mild aortic regurgitation. There is no aortic valvular stenosis. MITRAL VALVE Mitral annular calcification is mild. There is no evidence of mitral valve prolapse. There is no mitral valve stenosis. Mitral regurgitation is mild. TRICUSPID VALVE The tricuspid valve is normal in structure. There is mild tricuspid regurgitation. There is no tricuspid valve prolapse or vegetation. There is no tricuspid valve stenosis. PULMONIC VALVE The pulmonary valve is normal in structure. There is mild pulmonic valvular regurgitation. There is no pulmonic valvular stenosis. GREAT VESSELS The aortic root is normal in size. The ascending aorta is normal in size. mildly dilated with collapse PERICARDIAL EFFUSION The pericardium appears normal. There is no pleural effusion. <Conclusion> The left ventricular ejection fraction is within the normal range. Transmitral Doppler flow pattern is Grade I-abnormal relaxation pattern. The left atrium is mildly dilated. There is mild aortic regurgitation. Mitral regurgitation is mild. There is mild tricuspid regurgitation. There is mild pulmonic valvular regurgitation.
--- NOTE | 2016-12-24 15:04 | VASCLAB ---
PROCEDURE: Lower Extremity Venous Duplex Exam. HISTORY: Leg pain PRIORS: None. TECHNIQUE: Bilateral common femoral, femoral, popliteal and posterior tibial, peroneal and great saphenous veins were evaluated. Flow was assessed with color Doppler, compressibility, assessment of phasic flow and augmentation response. Report prepared by DAVID White, RVT FINDINGS: RIGHT: 1. Common Femoral Vein: 1.1. Compressibility - Fully compressible: Thrombus - None : Flow - Phasic: Augmentation -Normal: Reflux - None. 2. Femoral Vein: 2.1. Compressibility - Fully compressible: Thrombus - None : Flow - Phasic: Augmentation -Normal: Reflux - None. 3. Popliteal Vein: 3.1. Compressibility - Fully compressible: Thrombus - None : Flow - Phasic: Augmentation -Normal: Reflux - None. 4. Posterior Tibial Vein: 4.1. Compressibility - Fully compressible: Thrombus - None: Flow - Phasic: Augmentation -Normal: Reflux - None. 5. Peroneal Vein: 5.1. Compressibility - Fully compressible: Thrombus - None: Flow - Phasic: Augmentation -Normal: Reflux - None. 6. Great Saphenous Vein: 6.1. Compressibility - Fully compressible: Thrombus - None: Flow - Phasic: Augmentation - Normal: Reflux - None. LEFT: 1. Common Femoral Vein: 1.1. Compressibility - Fully compressible: Thrombus - None: Flow - Phasic: Augmentation -Normal: Reflux - None. 2. Femoral Vein: 2.1. Compressibility - Fully compressible: Thrombus - None: Flow - Phasic: Augmentation -Normal: Reflux - None. 3. Popliteal Vein: 3.1. Compressibility - Fully compressible: Thrombus - None : Flow - Phasic: Augmentation -Normal: Reflux - None. 4. Posterior Tibial Vein: 4.1. Compressibility - Fully compressible: Thrombus - None: Flow - Phasic: Augmentation -Normal: Reflux - None. 5. Peroneal Vein: 5.1. Compressibility - Fully compressible: Thrombus - None: Flow - Phasic: Augmentation -Normal: Reflux - None. 6. Great Saphenous Vein: 6.1. Compressibility - Fully compressible: Thrombus - None: Flow - Phasic: Augmentation - Normal: Reflux - None. OTHER FINDINGS: Right: None significant. Left: None significant. IMPRESSION: Right: No evidence of deep or superficial vein thrombosis of the right lower extremity. Normal valve function noted of the right side. Left: No evidence of deep or superficial vein thrombosis of the left lower extremity. Normal valve function noted of the left side.
--- NOTE | 2017-01-10 18:48 | CARD ---
APPROVED REPORT EKG Measurement Heart [id number] <Conclusion> Normal sinus rhythm Left axis deviation Right bundle branch block Abnormal ECG
== END 2016-12-24 14:30 | disposition home or self-care (01) | DRG 149 ==
LOC: C.ER 19:38 → C.9E 23:17 → C.6T 23:48 → C.9E 12-20 00:21 → C.3T 12-20 00:22
PROVIDERS: ADMIT Family Medicine; ATTEND Family Medicine
DX: H81.10 Benign paroxysmal vertigo, unspecified ear (principal); I35.1 Nonrheumatic aortic (valve) insufficiency; I10 Essential (primary) hypertension; R26.2 Difficulty in walking, not elsewhere classified; I49.3 Ventricular premature depolarization; J34.2 Deviated nasal septum; Z90.49 Acquired absence of other specified parts of digestive tract

== ENCOUNTER 2018-01-04 15:41 | Emergency (ER) | payer MEDICARE, OTHER ==
[2018-01-04 15:42] VITALS: BMI 28.7
[2018-01-04 15:52] VITALS: BP 130/69; PULSE 70; RESP 20; TEMP 98.5; O2SAT 94
[2018-01-04] MEDS ORDERED: Lidocaine 1% MPF (30 ml) Inj EPI STA (16:32)
[2018-01-04] MEDS ORDERED: Bacitracin 500 Units/gm Oint Foilpak UD TOP STA (16:32)
[2018-01-04] MEDS ORDERED: Lidocaine 1% w Epi 1:100,000 Inj INJ STA (16:35)
[2018-01-04] MEDS ORDERED: Bacitracin 500 Units/gm Oint Foilpak UD ONE ×2 (16:38→16:47)
--- NOTE | 2018-01-04 17:10 | RAD ---
Date of service: 01/04/2018 PROCEDURE: Right Wrist Radiographs. HISTORY: fall COMPARISON: No prior FINDINGS: BONES: No evidence of acute displaced fracture nor dislocation. The osseous structures appear intact so far as can be seen. If symptoms persist or occult fracture suspected clinically recommend repeat radiographs since 5-10 days as most fractures should become radiographically evident in this timeframe. . JOINTS: Normal. No dislocation. SOFT TISSUES: Normal. OTHER FINDINGS: None. IMPRESSION: No definitive radiographic evidence of acute displaced fracture nor dislocation. If symptoms persist or occult fracture suspected clinically recommend repeat radiographs since 5-10 days as most fractures should become radiographically evident in this timeframe. .
--- NOTE | 2018-01-04 17:13 | RAD ---
PROCEDURE: Left Hand Radiographs. HISTORY: fall COMPARISON: None. FINDINGS: BONES: No definitive radiographic evidence of acute displaced fracture nor dislocation. If symptoms persist or occult fracture suspected clinically recommend repeat radiographs since 5-10 days as most fractures should become radiographically evident in this timeframe. There is however the small bony density within the soft tissues distal to the distal phalanx 5th finger that could represent some old posttraumatic mineralization versus unfused distal tuft fracture. JOINTS: Normal. No osteoarthritic changes. SOFT TISSUES: Normal. OTHER FINDINGS: None. IMPRESSION: No definitive radiographic evidence of acute displaced fracture nor dislocation. If symptoms persist or occult fracture suspected clinically recommend repeat radiographs since 5-10 days as most fractures should become radiographically evident in this timeframe. There is however the small bony density within the soft tissues distal to the distal phalanx 5th finger that could represent some old posttraumatic mineralization versus unfused distal tuft fracture. Clinical correlation with physical exam and history recommended to exclude the possibility of an acute fracture though this is less likely given its appearance
--- NOTE | 2018-01-04 17:52 | C.PDOC ---
History Of Present Illness 82 year old female presents to the emergency department with complaints of pain to her right wrist, left hand, and a laceration on her upper lip status post fall. Patient states she was going to take a shower when she tripped and fell, stopping herself with her arms but hitting her lip on the border of the tub. Patient denies any LOC, dizziness, vision changes, or any other injuries. - HPI Time Seen by Provider: 01/04/18 16:09 Chief Complaint (Nursing): Trauma History Per: Patient History/Exam Limitations: no limitations Onset/Duration Of Symptoms: Days - Fall Fall:Prior To Injury: Tripped Past Medical History Reviewed: Historical Data, Nursing Documentation, Vital Signs Vital Signs: Last Vital Signs Temp 98.5 F 01/04/18 15:51 Pulse 70 01/04/18 15:51 Resp 20 01/04/18 15:51 BP 130/69 01/04/18 15:51 Pulse Ox 94 L 01/04/18 19:11 - Medical History PMH: Anxiety, Arthritis, Back Problems, HTN Denies: Chronic Kidney Disease Surgical History: Cholecystectomy - [facility] Procedures TETANUS TOXOID ADMINIST (09/15/14) Family History: States: No Known Family Hx - Social History Hx Tobacco Use: No Hx Alcohol Use: No Hx Substance Use: No - Immunization History Hx Tetanus Toxoid Vaccination: Yes Hx Influenza Vaccination: No Hx Pneumococcal Vaccination: No Review Of Systems Except As Marked, All Systems Reviewed And Found Negative. Eyes: Negative for: Vision Change Cardiovascular: Negative for: Chest Pain Respiratory: Negative for: Shortness of Breath Gastrointestinal: Negative for: Nausea, Vomiting Musculoskeletal: Positive for: Hand Pain (Right wrist and left hand pain ) Skin: Positive for: Other (Laceration on upper lip) Neurological: Negative for: Weakness, Numbness, Headache, Dizziness Physical Exam - Physical Exam Appears: Well, Non-toxic, No Acute Distress Skin: Normal Color, Warm, Dry Head: Atraumatic, Normacephalic Eye(s): bilateral: Normal Inspection Nose: Normal, No Deformity, No Tenderness Oral Mucosa: Moist Tongue: Normal Appearing, No Laceration, No Bleeding Lips: Laceration (irregular shaped laceration on upper lip, not crossing vermilion border) Teeth: Normal Dentition, No Loose, No Avulsed Neck: Normal ROM, Midline Cervical Tenderness, Paracervical Tenderness Cardiovascular: Rhythm Regular Respiratory: Normal Breath Sounds Gastrointestinal/Abdominal: Soft, No Tenderness Back: No Vertebral Tenderness, No Paraspinal Tenderness Extremity: Normal ROM, Tenderness (Mild tenderness of R wrist and left hand. left hand with ecchymosis on the dorsum on area of 2nd, 3rd and 4th MCP joints) , Capillary Refill (less than 2 seconds), No Deformity, No Swelling (of R wrist) Extremity: Left: Other (Ecchymosis and swelling on 2nd, 3rd, and 4th MCO joints of L hand) Pulses: Left Radial: Normal, Right Radial: Normal Neurological/Psych: Oriented x3, Normal Speech, Normal Cognition, Normal Motor, Normal Sensation Gait: Steady ED Course And Treatment O2 Sat by Pulse Oximetry: 94 (RA) Pulse Ox Interpretation: Normal - Other Rad Right Wrist X-Ray X-Ray: Viewed By Me, Read By Radiologist Interpretation: FINDINGS: BONES: No evidence of acute displaced fracture nor dislocation. The osseous structures appear intact so far as can be seen. If symptoms persist or occult fracture suspected clinically recommend repeat radiographs since 5-10 days as most fractures should become radiographically evident in this timeframe. . JOINTS: Normal. No dislocation. SOFT TISSUES: Normal. OTHER FINDINGS: None. IMPRESSION: No definitive radiographic evidence of acute displaced fracture nor dislocation. If symptoms persist or occult fracture suspected clinically recommend repeat radiographs since 5-10 days as most fractures should become radiographically evident in this timeframe. . Left Hand X-Ray X-Ray: Viewed By Me, Read By Radiologist Interpretation: FINDINGS: BONES: No definitive radiographic evidence of acute displaced fracture nor dislocation. If symptoms persist or occult fracture suspected clinically recommend repeat radiographs since 5-10 days as most fractures should become radiographically evident in this timeframe. There is however the small bony density within the soft tissues distal to the distal phalanx 5th finger that could represent some old posttraumatic mineralization versus unfused distal tuft fracture. JOINTS: Normal. No osteoarthritic changes. SOFT TISSUES: Normal. OTHER FINDINGS: None. IMPRESSION: No definitive radiographic evidence of acute displaced fracture nor dislocation. If symptoms persist or occult fracture suspected clinically recommend repeat radiographs since 5-10 days as most fractures should become radiographically evident in this timeframe. There is however the small bony density within the soft tissues distal to the distal phalanx 5th finger that could represent some old posttraumatic mineralization versus unfused distal tuft fracture. Clinical correlation with physical exam and history recommended to exclude the possibility of an acute fracture though this is less likely given its appearance Progress Note: Left hand x-ray and right wrist x-ray ordered. X-rays were normal and showed no acute fractures. Patient was given cockup splint on her right wrist and faith wrap for her left hand. Procedure: Wound Repair - Consent Obtained Consent obtained: Verbal - Performed by Performed by: Mid-level Provider - Indications Indication(s):: Laceration - Location Location:: Lip - Anesthetic Technique Anesthetic Technique: Local Local/Regional Anesthetic:: Lidocaine 1% w/epi - Complexity Complexity:: Simple (one layer) - Wound repair method Sutures:: # (7), Size (5-0), Type (nylon), Technique (interrupted) Disposition - Disposition Referrals: Armond Hayward MD [Staff Provider] - Disposition: HOME/ ROUTINE Disposition Time: 17:46 Condition: STABLE Additional Instructions: Follow up with PMD within 1-2 days. Return to ED if feel worse. Suture removal in 8-9 days. Prescriptions: Bacitracin OINT 1 applic TP TID #45 g Mag&Al/Simet/Diphen/Lido [First Magic Mouthwash] 5 ml MM .Q4-6H #1 kit Cephalexin [Keflex] 500 mg PO Q6 #20 cap Instructions: Wrist Sprain (DC), Contusion (DC), Laceration Repair With Stitches (DC) Forms: [facility] (Occitan) - Clinical Impression Clinical Impression: Contusion, hand, Wrist sprain, Lip laceration - PA / CHILD NUTRITION DIRECTOR / Resident Statement MD/DO has reviewed & agrees with the documentation as recorded. - Scribe Statement The provider has reviewed the documentation as recorded by the Scribe Liane Toledo All medical record entries made by the Scribe were at my direction and personally dictated by me. I have reviewed the chart and agree that the record accurately reflects my personal performance of the history, physical exam, medical decision making, and the department course for this patient. I have also personally directed, reviewed, and agree with the discharge instructions and disposition.
== END 2018-01-04 18:02 | disposition home or self-care (01) ==
LOC: C.ER 15:41
DX: S01.511A Laceration without foreign body of lip, initial encounter (principal); S63.501A Unspecified sprain of right wrist, initial encounter; S60.222A Contusion of left hand, initial encounter; W01.198A Fall on same level from slipping, tripping and stumbling with subsequent striking against other object, initial encounter

== ENCOUNTER 2018-01-14 10:30 | Emergency (ER) | payer MEDICARE, OTHER ==
[2018-01-14 10:30] VITALS: BMI 28.7
[2018-01-14 10:39] VITALS: BP 144/80; PULSE 74; RESP 16; TEMP 98.3; O2SAT 98
--- NOTE | 2018-01-14 10:55 | C.PDOC ---
History Of Present Illness 82 y/o female presents to ED for suture removal to upper lip placed secondary to fall on 01/04. Patient had 7 sutures placed for repair and denies discharge, active bleeding, swelling or any other complaints at this time. Time Seen by Provider: 01/14/18 10:46 Chief Complaint (Nursing): Suture/Staple Removal History Per: Patient History/Exam Limitations: no limitations Onset/Duration Of Symptoms: Days Current Symptoms Are (Timing): Still Present Past Medical History Reviewed: Historical Data, Nursing Documentation, Vital Signs Vital Signs: Last Vital Signs Temp 98.3 F 01/14/18 10:36 Pulse 74 01/14/18 10:36 Resp 16 01/14/18 10:36 BP 144/80 01/14/18 10:36 Pulse Ox 98 01/14/18 11:29 - Medical History PMH: Anxiety, Arthritis, Back Problems, HTN Surgical History: Cholecystectomy - [facility] Procedures TETANUS TOXOID ADMINIST (09/15/14) Family History: States: No Known Family Hx - Social History Hx Tobacco Use: No Hx Alcohol Use: No Hx Substance Use: No - Immunization History Hx Tetanus Toxoid Vaccination: Yes Hx Influenza Vaccination: No Hx Pneumococcal Vaccination: No Review Of Systems Constitutional: Negative for: Fever, Chills ENT: Positive for: Other (lip laceration) Cardiovascular: Negative for: Chest Pain Skin: Negative for: Rash Physical Exam - Physical Exam Appears: Non-toxic, No Acute Distress Skin: Warm, Dry, No Rash Head: Atraumatic, Normacephalic Eye(s): bilateral: Normal Inspection Oral Mucosa: Moist Lips: Laceration (mid upper lip, clean, dry and intact 7 sutures of 5-O nylon) Throat: Normal, No Erythema, No Exudate Neurological/Psych: Oriented x3, Normal Speech, Normal Cognition ED Course And Treatment O2 Sat by Pulse Oximetry: 98 (RA) Pulse Ox Interpretation: Normal Medical Decision Making Medical Decision Making: upper lip nicely healed 7 sutures of 5-0 nylon removed Disposition Doctor Will See Patient In The: Office Counseled Patient/Family Regarding: Studies Performed, Diagnosis - Disposition Referrals: Armond Hayward MD [Staff Provider] - Disposition: HOME/ ROUTINE Disposition Time: 10:54 Condition: GOOD Instructions: Stitches Removal Forms: [employer] (Amharic) Print Language: SYRIAC - Clinical Impression Clinical Impression: Removal of suture - Scribe Statement The provider has reviewed the documentation as recorded by the Scribe Willy Pablo All medical record entries made by the Rayshawnibchip were at my direction and personally dictated by me. I have reviewed the chart and agree that the record accurately reflects my personal performance of the history, physical exam, medical decision making, and the department course for this patient. I have also personally directed, reviewed, and agree with the discharge instructions and disposition.
[2018-01-14] MEDS ORDERED: Bacitracin 500 Units/gm Oint Foilpak UD ONE (10:57)
== END 2018-01-14 11:02 | disposition home or self-care (01) ==
LOC: C.ER 10:30
DX: Z48.02 Encounter for removal of sutures (principal)

== ENCOUNTER 2018-02-16 15:07 | Emergency (ER) | payer MEDICARE, OTHER ==
[2018-02-16 15:07] VITALS: BMI 28.7
--- NOTE | 2018-02-16 17:12 | C.PDOC ---
History Of Present Illness 82 year old female presents to the emergency department with complaints in her right hip radiating down her right leg for the last three days. patient states that she has never had such pain before and denies any recent injuries. She states that she has trouble walking, and has not taken medicine at home. Time Seen by Provider: 02/16/18 15:43 Chief Complaint (Nursing): Lower Extremity Problem/Injury History Per: Patient History/Exam Limitations: no limitations Onset/Duration Of Symptoms: Days (3) Current Symptoms Are (Timing): Still Present Past Medical History Reviewed: Historical Data, Nursing Documentation, Vital Signs Vital Signs: Last Vital Signs Temp 99.1 F 02/16/18 15:38 Pulse 85 02/16/18 15:38 Resp 18 02/16/18 15:38 BP 154/80 H 02/16/18 15:38 Pulse Ox 97 02/16/18 15:38 - Medical History PMH: Anxiety, Arthritis, Back Problems, HTN Denies: Chronic Kidney Disease Surgical History: Cholecystectomy - [facility] Procedures TETANUS TOXOID ADMINIST (09/15/14) Family History: States: No Known Family Hx - Social History Hx Tobacco Use: No Hx Alcohol Use: No Hx Substance Use: No - Immunization History Hx Tetanus Toxoid Vaccination: Yes Hx Influenza Vaccination: No Hx Pneumococcal Vaccination: No Review Of Systems Except As Marked, All Systems Reviewed And Found Negative. Musculoskeletal: Positive for: Leg Pain (right hip, radiating down right leg) Neurological: Negative for: Weakness, Numbness Physical Exam - Physical Exam Appears: Non-toxic, No Acute Distress Skin: Warm, Dry, No Rash Head: Atraumatic, Normacephalic Eye(s): bilateral: Normal Inspection Oral Mucosa: Moist Neck: Normal ROM, No Midline Cervical Tenderness, No Paracervical Tenderness, Supple Chest: Symmetrical, No Tenderness Cardiovascular: Rhythm Regular, No Friction Rub, No Murmur Respiratory: Normal Breath Sounds, No Rales, No Rhonchi, No Wheezing Gastrointestinal/Abdominal: Soft, No Tenderness Extremity: Normal ROM (all extremities), No Tenderness, No Calf Tenderness, Capi llary Refill (< 2 seconds), No Swelling Neurological/Psych: Oriented x3, Normal Speech, Normal Cognition Gait: Steady ED Course And Treatment O2 Sat by Pulse Oximetry: 97 (RA) Pulse Ox Interpretation: Normal - Other Rad XR Tibia Fibula Right X-Ray: Viewed By Me, Read By Radiologist Interpretation: PROCEDURE: Radiographs of the right tibia and fibula. HISTORY: leg pain. COMPARISON: None available. TECHNIQUE: Frontal and lateral views obtained. FINDINGS: BONES: No acute displaced fracture. JOINT SPACES: No dislocation. OTHER FINDINGS: Soft tissue calcifications. No evidence of radiopaque foreign body. IMPRESSION: No acute displaced fracture or dislocation identified. If symptoms persist, or if there is continued clinical concern, x-ray follow-up in 7-10 days should be considered. Progress Note: Plan: Flexeril 10mg PO. Toradol 30mg PO. XR Tibia Fibula Right Medical Decision Making Medical Decision Making: On re-exam, the patient reports improvement of symptoms. Lungs are CTA, heart is RRR, abdomen is soft, non-tender and tolerating PO well. Ambulatory in the ED with steady gait. Follow up with the medical doctor within 1-2 days. Return if worsened. Disposition - Disposition Referrals: [facility] [Outside] Bryn Wilkins MD [Non-Staff] - Disposition: HOME/ ROUTINE Disposition Time: 17:10 Condition: STABLE Additional Instructions: Follow up with the medical doctor within 1-2 days without fail. Return if worsened. Prescriptions: Cyclobenzaprine [Flexeril] 5 mg PO TID #21 tab Naproxen [Naprosyn] 500 mg PO BID #20 tab Instructions: Sciatica Forms: [facility] (Kazakh) Print Language: JAPANESE - Clinical Impression Clinical Impression: Sciatica - PA / INDEPENDENT DRIVER / Resident Statement MD/DO has reviewed & agrees with the documentation as recorded. - Scribe Statement The provider has reviewed the documentation as recorded by the Scribe (Juan Daniel Toledo) All medical record entries made by the Scribe were at my direction and personally dictated by me. I have reviewed the chart and agree that the record accurately reflects my personal performance of the history, physical exam, medical decision making, and the department course for this patient. I have also personally directed, reviewed, and agree with the discharge instructions and disposition.
--- NOTE | 2018-02-16 17:24 | RAD ---
PROCEDURE: Radiographs of the right tibia and fibula. HISTORY: leg pain COMPARISON: None available. TECHNIQUE: Frontal and lateral views obtained. FINDINGS: BONES: No acute displaced fracture. JOINT SPACES: No dislocation. OTHER FINDINGS: Soft tissue calcifications. No evidence of radiopaque foreign body. IMPRESSION: No acute displaced fracture or dislocation identified. If symptoms persist, or if there is continued clinical concern, x-ray follow-up in 7-10 days should be considered.
[2018-02-16 17:34] VITALS: BP 146/80; PULSE 86; RESP 16; TEMP 98.3
[2018-02-16 19:19] VITALS: O2SAT 97
== END 2018-02-16 17:35 | disposition home or self-care (01) ==
LOC: C.ER 15:07
DX: M54.31 Sciatica, right side (principal)
CPT/HCPCS: 73590; 96372; 99284; J1885

== ENCOUNTER 2018-05-08 15:10 | Emergency (ER) | payer MEDICARE, OTHER ==
[2018-05-08 15:11] VITALS: BMI 28.7
[2018-05-08 15:56] VITALS: RESP 18; TEMP 98.1
--- NOTE | 2018-05-08 18:21 | C.PDOC ---
Time Seen by Provider: 05/08/18 16:11 Chief Complaint (Nursing): Lower Extremity Problem/Injury Past Medical History Vital Signs: Last Vital Signs Temp 98.1 F 05/08/18 15:51 Pulse 65 05/08/18 15:51 Resp 18 05/08/18 15:51 BP 129/78 05/08/18 15:51 Pulse Ox 95 05/08/18 15:51 - Medical History PMH: Anxiety, Arthritis, Back Problems, HTN Denies: Chronic Kidney Disease Surgical History: Cholecystectomy - [facility] Procedures TETANUS TOXOID ADMINIST (09/15/14) Family History: States: Unknown Family Hx - Social History Hx Tobacco Use: No Hx Alcohol Use: No Hx Substance Use: No - Immunization History Hx Tetanus Toxoid Vaccination: Yes Hx Influenza Vaccination: Yes Hx Pneumococcal Vaccination: No ED Course And Treatment O2 Sat by Pulse Oximetry: 95 Disposition - Disposition
--- NOTE | 2018-05-08 18:23 | C.PDOC ---
History Of Present Illness 82 year old female with a PMHx of arthritis, presents to the ED complaining of right knee pain for the past couple of days. She denies any fall or injury. Patient normally walks with a cane but today felt like the knee might give out. Pain is localized behind the knee. Did not take any pain medication prior to arrival. Patient also reports having a non-productive cough for 2 days. She denies any fever, chills, sore throat, SOB, chest pain, or other associated symptoms. Time Seen by Provider: 05/08/18 16:11 Chief Complaint (Nursing): Lower Extremity Problem/Injury History Per: Patient History/Exam Limitations: no limitations Onset/Duration Of Symptoms: Hrs Current Symptoms Are (Timing): Still Present Past Medical History Reviewed: Historical Data, Nursing Documentation, Vital Signs Vital Signs: Last Vital Signs Temp 98.1 F 05/08/18 15:51 Pulse 65 05/08/18 15:51 Resp 18 05/08/18 15:51 BP 129/78 05/08/18 15:51 Pulse Ox 95 05/08/18 15:51 - Medical History PMH: Anxiety, Arthritis, Back Problems, HTN Denies: Chronic Kidney Disease Surgical History: Cholecystectomy - [facility] Procedures TETANUS TOXOID ADMINIST (09/15/14) Family History: States: Unknown Family Hx - Social History Hx Tobacco Use: No Hx Alcohol Use: No Hx Substance Use: No - Immunization History Hx Tetanus Toxoid Vaccination: Yes Hx Influenza Vaccination: Yes Hx Pneumococcal Vaccination: No Review Of Systems Constitutional: Negative for: Fever, Chills ENT: Negative for: Throat Pain Cardiovascular: Negative for: Chest Pain Respiratory: Negative for: Shortness of Breath Musculoskeletal: Positive for: Leg Pain (right knee) Skin: Negative for: Rash Neurological: Negative for: Weakness, Numbness Physical Exam - Physical Exam Appears: Non-toxic, No Acute Distress Skin: Warm, Dry Head: Atraumatic, Normacephalic Eye(s): bilateral: Normal Inspection Oral Mucosa: Moist Neck: Normal ROM Chest: Symmetrical Cardiovascular: Rhythm Regular, No Murmur Respiratory: Normal Breath Sounds, No Rales, No Rhonchi, No Wheezing Extremity: Normal ROM, Tenderness (to lateral and posterior right knee), No Calf Tenderness, No Swelling, Other (varicose veins to right lower leg; no palpable cord) Pulses: Left Dorsalis Pedis: Normal, Right Dorsalis Pedis: Normal Neurological/Psych: Oriented x3, Normal Speech ED Course And Treatment O2 Sat by Pulse Oximetry: 95 (RA) Pulse Ox Interpretation: Normal Medical Decision Making Medical Decision Making: Impression: Right knee pain Plan: --Knee x-ray --Doppler US --30 mg IM Toradol Doppler negative for DVT. X-Ray shows arthritic changes. On reevaluation patient reports improvement after Toradol. Patient feels comfortable being discharged home. Provided with follow up instructions. Disposition Counseled Patient/Family Regarding: Diagnosis, Need For Followup, Rx Given - Disposition Referrals: Armond Hayward MD [Staff Provider] - Disposition: HOME/ ROUTINE Disposition Time: 18:22 Condition: STABLE Additional Instructions: Usted fue evaluado hoy por dee sntomas agudos. Los estudios realizados fueron normales. No hay TVP ni fractura. Larry los medicamentos segn sea necesario para el dolor y la tos. Aurora un seguimiento con joseph mdico para obtener ms atencin y manejo. Prescriptions: Benzonatate [Tessalon Perles] 100 mg PO TID #30 sgl Meloxicam 7.5 mg PO DAILY #15 tablet Instructions: Viral Upper Respiratory Infection, Adult (DC), Knee Pain (DC) Forms: [facility] (Telugu) Print Language: SAMMARINESE - POA Present On Arrival: None - Clinical Impression Clinical Impression: Arthralgia of knee, right, URI (upper respiratory infection) - PA / MUD ENGINEER / Resident Statement MD/DO has reviewed & agrees with the documentation as recorded. - Scribe Statement The provider has reviewed the documentation as recorded by the Scribchip Martinez All medical record entries made by the Scribe were at my direction and personally dictated by me. I have reviewed the chart and agree that the record accurately reflects my personal performance of the history, physical exam, medical decision making, and the department course for this patient. I have also personally directed, reviewed, and agree with the discharge instructions and disposition.
[2018-05-08 18:31] VITALS: BP 126/77; PULSE 64
[2018-05-08 18:33] VITALS: O2SAT 95
--- NOTE | 2018-05-08 18:39 | RAD ---
PROCEDURE: Right Knee Radiographs. HISTORY: pain to leg COMPARISON: None available FINDINGS: BONES: Osseous demineralization. No acute displaced fracture. Degenerative changes including tenting of the intercondylar notch. Suprapatellar enthesophyte. JOINTS: No dislocation. Joint space narrowing most prominently involving the medial compartment JOINT EFFUSION: No significant joint effusion. OTHER FINDINGS: None. IMPRESSION: Degenerative changes. Joint space narrowing most prominently involving the medial compartment.
--- NOTE | 2018-05-09 14:51 | VASCLAB ---
Date of service: 05/08/2018 PROCEDURE: Right Lower Extremity Venous Duplex Exam. HISTORY: pain to leg r.o DVT PRIORS: None. TECHNIQUE: Right common femoral, femoral, popliteal and posterior tibial, peroneal and great saphenous veins were evaluated. Flow was assessed with color Doppler, compressibility, assessment of phasic flow and augmentation response. Report prepared by DAVID White, RVT FINDINGS: RIGHT: 1. Common Femoral Vein: 1.1. Compressibility - Fully compressible: Thrombus - None: Flow - Phasic: Augmentation -Normal: Reflux - None. 2. Femoral Vein: 2.1. Compressibility - Fully compressible: Thrombus - None: Flow - Phasic: Augmentation -Normal: Reflux - None. 3. Popliteal Vein: 3.1. Compressibility - Fully compressible: Thrombus - None: Flow - Phasic: Augmentation -Normal: Reflux - None. 4. Posterior Tibial Vein: 4.1. Compressibility - Fully compressible: Thrombus - None: Flow - Phasic: Augmentation -Normal: Reflux - None. 5. Peroneal Vein: 5.1. Compressibility - Fully compressible: Thrombus - None: Flow - Phasic: Augmentation -Normal: Reflux - None. 6. Great Saphenous Vein: 6.1. Compressibility - Fully compressible: Thrombus -None: Flow - Phasic: Augmentation - Normal: Reflux - None. OTHER FINDINGS: IMPRESSION: No evidence of deep or superficial vein thrombosis of the right lower extremity with excellent venous flow. Normal valve function noted of the right side. Normal venous flow noted in the left common femoral vein.
== END 2018-05-08 18:35 | disposition home or self-care (01) ==
LOC: C.ER 15:10
DX: J06.9 Acute upper respiratory infection, unspecified (principal); M25.561 Pain in right knee; I10 Essential (primary) hypertension
CPT/HCPCS: 73562; 93971; 96372; 99284; J1885

== ENCOUNTER 2018-06-12 20:07 | Emergency (ER) | payer MEDICARE, OTHER ==
[2018-06-12 20:07] VITALS: BMI 28.7
[2018-06-12 20:22] VITALS: BP 159/78; PULSE 70; RESP 20; TEMP 98.1; O2SAT 97
--- NOTE | 2018-06-12 21:48 | C.PDOC ---
History Of Present Illness 82 y/o female presents to the ER complaining of right shoulder,elbow, and wrist pain s/p fall in the afternoon. Patient states that she tripped and fell on her right side at home. Patient reports that she has pain with full ROM of right wrist and hand. Denies having head injuries, LOC, dizziness, CP, SOB, nausea, and vomiting. Chief Complaint (Nursing): Upper Extremity Problem/Injury History Per: Patient History/Exam Limitations: no limitations Onset/Duration Of Symptoms: Hrs Current Symptoms Are (Timing): Still Present Severity: Moderate Past Medical History Reviewed: Historical Data, Nursing Documentation, Vital Signs Vital Signs: Last Vital Signs Temp 98.1 F 06/12/18 20:15 Pulse 70 06/12/18 20:15 Resp 20 06/12/18 20:15 BP 159/78 H 06/12/18 20:15 Pulse Ox 97 06/12/18 20:15 - Medical History PMH: Anxiety, Arthritis, Back Problems, HTN Denies: Chronic Kidney Disease Surgical History: Cholecystectomy - [facility] Procedures TETANUS TOXOID ADMINIST (09/15/14) Family History: States: No Known Family Hx - Social History Hx Tobacco Use: No Hx Alcohol Use: No Hx Substance Use: No - Immunization History Hx Tetanus Toxoid Vaccination: Yes Hx Influenza Vaccination: Yes Hx Pneumococcal Vaccination: No Review Of Systems Constitutional: Negative for: Fever, Chills, Weakness Eyes: Negative for: Redness ENT: Negative for: Mouth Swelling Cardiovascular: Negative for: Chest Pain Respiratory: Negative for: Shortness of Breath Gastrointestinal: Negative for: Nausea, Vomiting, Diarrhea Genitourinary: Negative for: Dysuria, Hematuria Musculoskeletal: Positive for: Other (right shoulder, elbow, and wrist pain). Negative for: Back Pain Neurological: Negative for: Weakness, Numbness, Dizziness Physical Exam - Physical Exam Appears: Non-toxic, No Acute Distress Skin: Normal Color, Warm, Dry, Ecchymosis (ecchymosis to dorsal aspect of right wrist, mild ecchymosis to right hand) Head: Atraumatic, Normacephalic Eye(s): bilateral: Normal Inspection Nose: Normal Oral Mucosa: Moist Neck: Normal ROM, Supple Chest: Symmetrical, No Tenderness, No Ecchymosis Cardiovascular: Rhythm Regular Respiratory: Normal Breath Sounds, No Rales, No Rhonchi, No Wheezing, Other (normal inspiratory effort) Gastrointestinal/Abdominal: Normal Exam, Soft, No Tenderness, No Guarding, No Rebound Back: No Vertebral Tenderness Extremity: Normal ROM (pain with full ROM in right wrist and hand), Tenderness (tenderness to proximal right humerus, right elbow, and right wrist), Capillary Refill (< 2 seconds), No Deformity, Swelling (swelling to right wrist) Pulses: Right Brachial: Normal, Right Radial: Normal Neurological/Psych: Oriented x3, Normal Speech, Normal Motor, Normal Sensation ED Course And Treatment O2 Sat by Pulse Oximetry: 97 (RA) Pulse Ox Interpretation: Normal Medical Decision Making Medical Decision Making: Plan: --X-Ray- Right Humerus --X-Ray-Right Elbow --X-Ray- Right Wrist Updates: Preliminary reading of X-Rays show no fractures. Volar splint applied to right wrist. patient to be referred for further evaluation by ortho. Disposition Counseled Patient/Family Regarding: Studies Performed, Diagnosis, Need For Followup - Disposition Referrals: Johan Taylor MD [Staff Provider] - Disposition: HOME/ ROUTINE Disposition Time: 22:00 Condition: STABLE Additional Instructions: [place] Ibuprofeno 600 mg por va oral james veces al da segn sea necesario para el dolor. Contine desgastando el arns hasta que el especialista Instructions: Common Wrist Injuries (DC) Forms: Gen Discharge Inst Albanian, [facility] (Albanian) Print Language: CHINESE - Clinical Impression Clinical Impression: Right wrist injury - PA / PATIENT EDUCATOR / Resident Statement MD/DO has reviewed & agrees with the documentation as recorded. - Scribe Statement The provider has reviewed the documentation as recorded by the Mercedes Knight Provider Attestation All medical record entries made by the Rayshawnibchip were at my direction and personally dictated by me. I have reviewed the chart and agree that the record accurately reflects my personal performance of the history, physical exam, medical decision making, and the department course for this patient. I have also personally directed, reviewed, and agree with the discharge instructions and disposition.
--- NOTE | 2018-06-13 10:48 | RAD ---
Date of service: 06/12/2018 PROCEDURE: Right Wrist Radiographs. HISTORY: fracture COMPARISON: None. FINDINGS: BONES: There is no acute displaced fracture or bone destruction. Bone alignment is normal. There is diffuse bone demineralization. JOINTS: Mild degenerative osteoarthrosis in the 1st PRISON joint. The remaining joint spaces are preserved. SOFT TISSUES: There is mild dorsal soft tissue swelling. OTHER FINDINGS: None. IMPRESSION: No acute displaced fracture or dislocation.
--- NOTE | 2018-06-13 10:49 | RAD ---
PROCEDURE: Radiographs of the right humerus. HISTORY: fracture COMPARISON: None. FINDINGS: BONES: There is diffuse bone demineralization. No acute displaced fracture or bone destruction. Bone alignment is normal. SOFT TISSUES: Mild degenerative osteoarthrosis in the acromioclavicular and glenohumeral joints. OTHER FINDINGS: None. IMPRESSION: No acute displaced fracture or dislocation.
--- NOTE | 2018-06-13 10:51 | RAD ---
Date of service: 06/12/2018 PROCEDURE: Radiographs of the right elbow. HISTORY: fracture COMPARISON: No prior. FINDINGS: BONES: Bone alignment and mineralization are normal. There is no acute displaced fracture or bone destruction. JOINTS: Normal. No osteoarthritis. SOFT TISSUES: Normal. JOINT EFFUSION: None. OTHER FINDINGS: None. IMPRESSION: No acute fracture or dislocation.
== END 2018-06-12 22:18 | disposition home or self-care (01) ==
LOC: C.ER 20:07
DX: S60.211A Contusion of right wrist, initial encounter (principal); W01.0XXA Fall on same level from slipping, tripping and stumbling without subsequent striking against object, initial encounter; Y92.009 Unspecified place in unspecified non-institutional (private) residence as the place of occurrence of the external cause

== ENCOUNTER 2018-08-09 11:56 | Observation (INO) | payer MEDICARE, OTHER ==
[2018-08-09 11:57] VITALS: BMI 28.7
[2018-08-09] MEDS ORDERED: Sodium Chloride 0.9% 1,000 ML IV ONE (12:24)
--- NOTE | 2018-08-09 12:45 | C.PDOC ---
History Of Present Illness 83 y/o female, with no medical problems, presents to ED stating she woke up this morning and passed a large amount of bright red watery stool. Patient states she never had these symptoms before and has no history of colitis or ulcer disease. She denies abdominal pain, nausea, or vomiting. Patient also complains of feeling lightheaded this afternoon. Otherwise she has no other complaints. Patient denies eating any red foods or beets. Time Seen by Provider: 08/09/18 12:17 Chief Complaint (Nursing): Abdominal Pain History Per: Patient History/Exam Limitations: no limitations Onset/Duration Of Symptoms: Hrs Current Symptoms Are (Timing): Still Present Past Medical History Reviewed: Historical Data, Nursing Documentation, Vital Signs Vital Signs: Last Vital Signs Temp 98.3 F 08/09/18 11:59 Pulse 87 08/09/18 11:59 Resp 18 08/09/18 11:59 BP 144/76 08/09/18 11:59 Pulse Ox 97 08/09/18 11:59 - Medical History PMH: Anxiety, Arthritis, Back Problems, HTN Denies: Chronic Kidney Disease Surgical History: Cholecystectomy - [facility] Procedures TETANUS TOXOID ADMINIST (09/15/14) Family History: States: No Known Family Hx - Social History Hx Tobacco Use: No Hx Alcohol Use: No Hx Substance Use: No - Immunization History Hx Tetanus Toxoid Vaccination: Yes Hx Influenza Vaccination: Yes Hx Pneumococcal Vaccination: No Review Of Systems Constitutional: Negative for: Fever, Chills Cardiovascular: Negative for: Chest Pain Respiratory: Negative for: Cough, Shortness of Breath Gastrointestinal: Positive for: Other (bright red watery stool). Negative for: Nausea, Vomiting, Abdominal Pain Genitourinary: Negative for: Dysuria, Hematuria Skin: Negative for: Rash Physical Exam - Physical Exam Appears: Non-toxic, No Acute Distress Skin: Warm, Dry Head: Atraumatic, Normacephalic Eye(s): bilateral: Normal Inspection Oral Mucosa: Moist Neck: Supple Cardiovascular: Rhythm Regular, No Murmur Respiratory: Normal Breath Sounds, No Rales, No Rhonchi, No Wheezing Gastrointestinal/Abdominal: Bowel Sounds (normal), Soft, Tenderness (mild tenderness in lower abdomen, left and right), No Mass, No Guarding, No Rebound Rectal: Other (has maroon stool) Extremity: Bilateral: Atraumatic, Normal ROM Neurological/Psych: Oriented x3, Normal Speech ED Course And Treatment - Laboratory Results Result Diagrams: 08/09/18 12:54 Lab Interpretation: Abnormal (Stool quaiac positive) O2 Sat by Pulse Oximetry: 97 (RA) Pulse Ox Interpretation: Normal Reevaluation Time: 14:21 Reassessment Condition: Unchanged - Physician Consult Information Physician Contacted: Babatunde Stevenson Outcome Of Conversation: He agrees to admit patient for Dr redman for GI evaluation. Medical Decision Making Medical Decision Making: Plan: --Labs --IV fluids Progress/Update: 1:42pm : Spoke with [facility] floorperson Dr. Briana Stevenson regarding the pts case. Disposition - Disposition Disposition: HOSPITALIZED Disposition Time: 14:22 Condition: STABLE - POA Present On Arrival: None - Clinical Impression Clinical Impression: GI hemorrhage - Scribe Statement The provider has reviewed the documentation as recorded by the Rayshawnibe Liane Toledo Provider Attestation: All medical record entries made by the Scribe were at my direction and personally dictated by me. I have reviewed the chart and agree that the record accurately reflects my personal performance of the history, physical exam, medical decision making, and the department course for this patient. I have also personally directed, reviewed, and agree with the discharge instructions and disposition.
[2018-08-09 12:59] LABS: BASO % 0.7 % (0.0-2.0); EOS # 0.2 K/uL (0.0-0.7); EOS % 2.6 % (0.0-4.0); HEMOGLOBIN 13.1 g/dL (11.0-16.0); LYMPH # 1.4 K/uL (1.0-4.3); LYMPH % 24.1 % (20.0-40.0); MEAN CELL VOLUME 96.9 fL (81.0-99.0); MEAN CORPUSCULAR HEMOGLOBIN 32.7 pg (27.0-31.0); MEAN CORPUSCULAR HGB CONC 33.7 g/dL (33.0-37.0); MEAN PLATELET VOLUME 8.2 fL (7.2-11.7); MONO # 0.6 K/uL (0.0-0.8); MONO % 9.5 % (0.0-10.0); NEUT # 3.7 K/uL (1.8-7.0); NEUT % 63.1 % (50.0-75.0); RBC 4.02 Mil/uL (3.80-5.20); RED CELL DISTRIBUTION WIDTH 14.2 % (11.5-14.5); WHITE BLOOD COUNT 5.9 K/uL (4.8-10.8)
[2018-08-09 13:07] LABS: INR 1.1; PROTHROMBIN TIME 12.1 SECONDS (9.7-12.2)
[2018-08-09 13:37] LABS: SQUAMOUS EPITHIAL 10 /hpf (0-5); URINE BACTERIA RARE (<OCC); URINE BILIRUBIN NEGATIVE (NEGATIVE); URINE BLOOD 2+ (NEGATIVE); URINE CLARITY Hazy (Clear); URINE COLOR Yellow (YELLOW); URINE GLUCOSE (UA) NORMAL (Normal); URINE LEUKOCYTE ESTERASE 1+ Leu/uL (Negative); URINE PROTEIN NEGATIVE (NEGATIVE); URINE UROBILINOGEN NORMAL mg/dL (0.2-1.0)
[2018-08-09 14:39] LABS: ALB/GLOB RATIO 1.2 (1.0-2.1); ALT/SGPT 24 U/L (9-52); AST/SGOT 39 U/L (14-36); BLOOD UREA NITROGEN 19 mg/dL (7-17); CALCIUM 9.4 mg/dl (8.6-10.4); GFR NON-AFRICAN AMERICAN > 60
--- NOTE | 2018-08-09 15:54 | CP.PCM.HP ---
History of Present Illness - History of Present Illness History of Present Illness: Ms. Kang is 83 year old female with a PMHx of HTN, Vertigo, and Chronic Lower back Pain who presents to the hospital with complaints of bright red blood per rectum during a bowel movement this morning. Patient stated she had 3 bowel movements today. The first two were bright red blood and the 3rd one was maroon colored. She denies ever having blood in her stool. The only blood thinner she takes is aspirin. She admits not always being compliant with her medications because she doesn't like taking too many medications. She had a colonoscopy 2 years ago and she was told it was normal. She denies any lightheadedness but does complain of mild dizziness. ROS POSITIVES: Bright red blood per rectum, Dizziness(Mild) NEGATIVES: Headache, blurry vision, fiver, chills, chest pain, palpitations, abdominal pain, nausea, vomiting, diarrhea, constipation, urinary symptoms, NSAID Use PMHx: HTN, Vertigo, Chronic Lower Back Pain PSHx: Cholecystectomy, Colonoscopy 2 years ago normal. Allergies: NKDA SocialHx: Denies tobacco, EtoH or illicit drug use. Lives in [place]. preforms all her ADL's/IADL's Hos: See Chart FamHx: Denies Meds: Losartan (Unknown Dose)m Carvedilol 3.125 BID, Vitamin D Q7Days, Potassium (Unknown Dose), Calcium (unknown Dose), ASA 81 Daily. PMD: Dr. Hayward Present on Admission - Present on Admission Any Indicators Present on Admission: No Review of Systems - Review of Systems All systems: reviewed and no additional remarkable complaints except (As per HPI) Review of Systems: See HPI Past Patient History - Infectious Disease Hx of Infectious Diseases: None - Past Medical History & Family History Past Medical History?: Yes - Past Social History Smoking Status: Never Smoked - CARDIAC Hx Hypertension: Yes - PULMONARY Hx Respiratory Disorders: No - NEUROLOGICAL Hx Neurological Disorder: No - HEENT Hx HEENT Problems: Yes Hx Cataracts: Yes (with surgery long time ago) - RENAL Hx Chronic Kidney Disease: No - ENDOCRINE/METABOLIC Hx Endocrine Disorders: No - HEMATOLOGICAL/ONCOLOGICAL Hx Blood Disorders: No - INTEGUMENTARY Hx Dermatological Problems: No - MUSCULOSKELETAL/RHEUMATOLOGICAL Hx Arthritis: Yes - GASTROINTESTINAL Hx Gastrointestinal Disorders: No - GENITOURINARY/GYNECOLOGICAL Hx Genitourinary Disorders: No - PSYCHIATRIC Hx Anxiety: Yes Hx Substance Use: No - SURGICAL HISTORY Hx Cholecystectomy: Yes - ANESTHESIA Hx Anesthesia: No Hx Anesthesia Reactions: No Hx Malignant Hyperthermia: No Meds Allergies/Adverse Reactions: Allergies Allergy/AdvReac Type Severity Reaction Status Date / Time No Known Allergies Allergy Verified 05/08/18 15:56 Physical Exam - Constitutional Appears: Well, Non-toxic, No Acute Distress - Head Exam Head Exam: ATRAUMATIC, NORMAL INSPECTION, NORMOCEPHALIC - Eye Exam Eye Exam: Normal appearance, PERRL. absent: Conjunctival injection, EOMI, Scleral icterus - ENT Exam ENT Exam: Mucous Membranes Moist - Neck Exam Neck exam: Positive for: Normal Inspection. Negative for: Lymphadenopathy, Tenderness, Thyromegaly - Respiratory Exam Respiratory Exam: Clear to Auscultation Bilateral, NORMAL BREATHING PATTERN. absent: Accessory Muscle Use - Cardiovascular Exam Cardiovascular Exam: RRR, +S1, +S2. absent: JVD - GI/Abdominal Exam GI & Abdominal Exam: Normal Bowel Sounds, Soft, Tenderness (Mild Epigastric/periumbilical. Jacques's Sign Negative. ). absent: Distended, Firm, Guarding, Organomegaly, Pulsatile Mass, Rebound, Rigid - Extremities Exam Extremities exam: Positive for: pedal edema (+1) Results - Vital Signs Recent Vital Signs: Last Vital Signs Temp 98.3 F 08/09/18 11:59 Pulse 78 08/09/18 14:47 Resp 20 08/09/18 14:47 BP 120/52 L 08/09/18 14:47 Pulse Ox 97 08/09/18 14:47 - Labs Result Diagrams: 08/09/18 12:54 08/09/18 13:25 Labs: Laboratory Results - last 24 hr 08/09/18 08/09/18 08/09/18 12:54 12:54 12:54 WBC 5.9 RBC 4.02 Hgb 13.1 Hct 39.0 MCV 96.9 MCH 32.7 H MCHC 33.7 RDW 14.2 Plt Count 201 MPV 8.2 Neut % (Auto) 63.1 Lymph % (Auto) 24.1 [place] % (Auto) 9.5 Eos % (Auto) 2.6 Baso % (Auto) 0.7 Neut # (Auto) 3.7 Lymph # (Auto) 1.4 [place] # (Auto) 0.6 Eos # (Auto) 0.2 Baso # (Auto) 0.0 PT 12.1 INR 1.1 APTT 36 H Sodium Potassium Chloride Carbon Dioxide Anion Gap BUN Creatinine Est GFR ( Amer) Est GFR (Non-Af Amer) Random Glucose Calcium Total Bilirubin AST ALT Alkaline Phosphatase Total Protein Albumin Globulin Albumin/Globulin Ratio Urine Color Urine Clarity Urine pH Ur Specific [place] Urine Protein Urine Glucose (UA) Urine Ketones Urine Blood Urine Nitrate Urine Bilirubin Urine Urobilinogen Ur Leukocyte Esterase Urine WBC (Auto) Urine RBC (Auto) Ur Squamous Epith Cells Urine Bacteria Stool Occult Blood Blood Type A POSITIVE Antibody Screen Negative 08/09/18 08/09/18 08/09/18 13:17 13:25 13:25 WBC RBC Hgb Hct MCV MCH MCHC RDW Plt Count MPV Neut % (Auto) Lymph % (Auto) [place] % (Auto) Eos % (Auto) Baso % (Auto) Neut # (Auto) Lymph # (Auto) [place] # (Auto) Eos # (Auto) Baso # (Auto) PT INR APTT Sodium 138 Potassium 4.4 Chloride 103 Carbon Dioxide 31 H Anion Gap 8 L BUN 19 H Creatinine 0.5 L Est GFR ( Amer) > 60 Est GFR (Non-Af Amer) > 60 Random Glucose 85 Calcium 9.4 Total Bilirubin 0.6 AST 39 H ALT 24 Alkaline Phosphatase 85 Total Protein 7.3 Albumin 4.0 Globulin 3.3 Albumin/Globulin Ratio 1.2 Urine Color Yellow Urine Clarity Hazy Urine pH 6.0 Ur Specific [place] 1.020 Urine Protein Negative Urine Glucose (UA) Normal Urine Ketones Negative Urine Blood 2+ H Urine Nitrate Negative Urine Bilirubin Negative Urine Urobilinogen Normal Ur Leukocyte Esterase 1+ H Urine WBC (Auto) 8 H Urine RBC (Auto) 3 Ur Squamous Epith Cells 10 H Urine Bacteria Rare Stool Occult Blood Positive H Blood Type Antibody Screen Assessment & Plan - Assessment and Plan (Free Text) Assessment: 83 year old female with a PMHx of HTN, Vertigo, and Chronic Lower back Pain admitted for evaluation and treatment blood in the stool. Stool Guiac + in the ED. Plan: Blood in Stool) DDx: Internal Hemorrhoids, GI malignancy (Less likely), Lower GI Bleed. CT Abd/Pelvis w/ IV Contrast: Ordered and PENDING Consults: GI (Dr. Singletary), F/U Recs Labs: CBC for 8:00PM Today. Mgmt: Protonix 40 IV Q12 Liquid Diet Hold blood thinners and NSAIDS Dizziness Likley 2/2 to Vertigo [facility]. Will Monitor PT Eval. Will Consider Meclizine Hx of HTN Patient is currently normotensive. Mgmt: Cont. Home Meds when confirmed Carvedilol 3.125 BID Losartan PO Lasix PO ASA 81 PO daily Hx of Chronic Back Pain Mgmt: Lidoderm Patch PRN Proph Pharmocological AntiCoag Contraindicated due Bleed Protonix 40 IV Q12H Dispo: Will F/U CT Abd/Pelvis and monitor H/H. Patient uses [facility]. Called pharmacy @ [phone] & but no answer likely closed. Asked patient to tell someone to bring from home.
[2018-08-09] MEDS ORDERED: Lidocaine 5% Patch TD PRN (15:56)
[2018-08-09] MEDS ORDERED: Iodixanol 320 MG/ML 100 ML BOTTLE IV ONE (17:09)
[2018-08-09 19:27] LABS: MEAN CELL VOLUME 97.2 fL (81.0-99.0); MEAN CORPUSCULAR HGB CONC 32.9 g/dL (33.0-37.0); MEAN PLATELET VOLUME 7.9 fL (7.2-11.7); RBC 3.77 Mil/uL (3.80-5.20); RED CELL DISTRIBUTION WIDTH 14.3 % (11.5-14.5); WHITE BLOOD COUNT 6.7 K/uL (4.8-10.8)
[2018-08-09 19:29] LABS: HEMOGLOBIN 12.1 g/dL (11.0-16.0)
[2018-08-10] MEDS ORDERED: Ciprofloxacin 400mg/200ml D5W 400 MG/200 ML BAG IVPB SCH (01:15)
[2018-08-10] MEDS: metroNIDAZOLE IV 500 mg/100 ml 500 MG/100 ML BAG IVPB SCH ×2 (01:30→10:15)
--- NOTE | 2018-08-10 05:58 | CT ---
Date of service: 08/09/2018 PROCEDURE: CT Abdomen and Pelvis with contrast HISTORY: Abd Pain/GI Bleed COMPARISON: None. TECHNIQUE: Contrast dose: 100 mL of Visipaque 320 intravenously. Axial and reformatted coronal and sagittal CT images of the abdomen and pelvis were obtained after IV contrast administration. Radiation dose: Total exam DLP = 934.79 mGy-cm. This CT exam was performed using one or more of the following dose reduction techniques: Automated exposure control, adjustment of the mA and/or kV according to patient size, and/or use of iterative reconstruction technique. FINDINGS: LOWER THORAX: Linear opacity noted at the right middle lobe may represent atelectasis or scar tissue. No evidence of pleural effusion. The heart is mildly enlarged. LIVER: Hepatic steatosis is noted. GALLBLADDER AND BILE DUCTS: Status post cholecystectomy. The common bile duct is mild PANCREAS: Unremarkable. No gross lesion or ductal dilatation. SPLEEN: Unremarkable. ADRENALS: Unremarkable. No mass. KIDNEYS AND URETERS: Unremarkable. No hydronephrosis. No solid mass. VASCULATURE: Unremarkable. No aortic aneurysm. Small foci of atherosclerotic calcification. BOWEL: No obstruction. No gross mural thickening. Suspicious for distal rectal and anal wall thickening. Diffuse colonic diverticulosis in the descending and sigmoid colon without definite evidence of diverticulitis. APPENDIX: Normal appendix. PERITONEUM: Unremarkable. No free fluid. No free air. LYMPH NODES: Unremarkable. No enlarged lymph nodes. BLADDER: Unremarkable. REPRODUCTIVE: Uterus and adnexa are not visualized. BONES: No acute fracture. OTHER FINDINGS: None. IMPRESSION: Suspicious for distal rectum and anal wall thickening. Correlate clinically. Distal large bowel diffuse diverticulosis without definite evidence of diverticulitis. Preliminary report was submitted by [facility] Radiology contains concordant findings.
[2018-08-10 08:32] LABS: BASO # 0.1 K/uL (0.0-0.2); BASO % 1.1 % (0.0-2.0); EOS # 0.2 K/uL (0.0-0.7); EOS % 3.4 % (0.0-4.0); HEMOGLOBIN 12.4 g/dL (11.0-16.0); LYMPH # 1.5 K/uL (1.0-4.3); LYMPH % 31.4 % (20.0-40.0); MEAN CELL VOLUME 97.4 fL (81.0-99.0); MEAN CORPUSCULAR HEMOGLOBIN 32.8 pg (27.0-31.0); MEAN CORPUSCULAR HGB CONC 33.7 g/dL (33.0-37.0); MEAN PLATELET VOLUME 8.4 fL (7.2-11.7); MONO # 0.5 K/uL (0.0-0.8); MONO % 9.7 % (0.0-10.0); NEUT # 2.5 K/uL (1.8-7.0); NEUT % 54.4 % (50.0-75.0); RBC 3.78 Mil/uL (3.80-5.20); RED CELL DISTRIBUTION WIDTH 14.2 % (11.5-14.5); WHITE BLOOD COUNT 4.7 K/uL (4.8-10.8)
[2018-08-10 08:45] LABS: ALB/GLOB RATIO 1.3 (1.0-2.1); ALBUMIN 3.8 g/dL (3.5-5.0); ALT/SGPT 17 U/L (9-52); AST/SGOT 38 U/L (14-36); BLOOD UREA NITROGEN 11 mg/dL (7-17); GFR NON-AFRICAN AMERICAN > 60
--- NOTE | 2018-08-10 10:44 | CP.PCM.CON ---
History of Present Illness - History of Present Illness History of Present Illness: GI Service consult CC: GI bleed HPI: Pt of Dr Hayward, presents to ER yesterday with painless rectal bleeding, bllood mixed in with stool, several episodes, without fevers, chills. Patient had Colonoscopy with an unknown physician 2 years ago and thinks it was normal. CT scan shows severe sigmoid divericulosis and possible diverticulitis in a small segment of the sigmoid. Hgb levels have remained stable since admission. Review of Systems - Constitutional Constitutional: absent: Chills, Fever - EENT Eyes: absent: Change in Vision Nose/Mouth/Throat: absent: Epistaxis - Cardiovascular Cardiovascular: absent: Chest Pain - Respiratory Respiratory: absent: Dyspnea - Gastrointestinal Gastrointestinal: As Per HPI, Hematochezia. absent: Abdominal Pain - Genitourinary Genitourinary: absent: Difficulty Urinating - Musculoskeletal Musculoskeletal: absent: Back Pain - Integumentary Integumentary: absent: Jaundice - Neurological Neurological: absent: Weakness - Psychiatric Psychiatric: absent: Behavioral Changes - Hematologic/Lymphatic Hematologic: absent: Easy Bleeding Past Patient History - Infectious Disease Hx of Infectious Diseases: None - Past Medical History & Family History Past Medical History?: Yes - Past Social History Smoking Status: Never Smoked Alcohol: None - CARDIAC Hx Hypertension: Yes - PULMONARY Hx Respiratory Disorders: No - NEUROLOGICAL Hx Neurological Disorder: No - HEENT Hx HEENT Problems: Yes Hx Cataracts: Yes (with surgery long time ago) - RENAL Hx Chronic Kidney Disease: No - ENDOCRINE/METABOLIC Hx Endocrine Disorders: No - HEMATOLOGICAL/ONCOLOGICAL Hx Blood Disorders: No - INTEGUMENTARY Hx Dermatological Problems: No - MUSCULOSKELETAL/RHEUMATOLOGICAL Hx Arthritis: Yes - GASTROINTESTINAL Hx Gastrointestinal Disorders: No - GENITOURINARY/GYNECOLOGICAL Hx Genitourinary Disorders: No - PSYCHIATRIC Hx Anxiety: Yes Hx Substance Use: No - SURGICAL HISTORY Hx Cholecystectomy: Yes - ANESTHESIA Hx Anesthesia: No Hx Anesthesia Reactions: No Hx Malignant Hyperthermia: No Meds Allergies/Adverse Reactions: Allergies Allergy/AdvReac Type Severity Reaction Status Date / Time No Known Allergies Allergy Verified 05/08/18 15:56 - Medications Medications: Current Medications Ciprofloxacin (Cipro 400mg/200ml Dsw) 400 mg in 200 mls @ 133 mls/hr IVPB Q12H [facility]; Protocol Last Admin: 08/10/18 01:30 Dose: 133 mls/hr Metronidazole (Flagyl) 500 mg in 100 mls @ 100 mls/hr IVPB Q8H [facility]; Protocol Last Admin: 08/10/18 01:30 Dose: 100 mls/hr Lidocaine (Lidoderm) 1 ea TD DAILY PRN PRN Reason: Back Pain Pantoprazole Sodium (Protonix Inj) 40 mg IVP Q12H [facility] Last Admin: 08/10/18 04:55 Dose: 40 mg Physical Exam - Constitutional Appears: Well, No Acute Distress - Head Exam Head Exam: ATRAUMATIC, NORMOCEPHALIC - Eye Exam Eye Exam: absent: Scleral icterus - Neck Exam Neck exam: Positive for: Normal Inspection - Respiratory Exam Respiratory Exam: Clear to Auscultation Bilateral - Cardiovascular Exam Cardiovascular Exam: REGULAR RHYTHM - GI/Abdominal Exam GI & Abdominal Exam: Mass (palpable periumbilical fullness), Soft. absent: Distended, Tenderness - Extremities Exam Extremities exam: Positive for: normal inspection - Back Exam Back exam: NORMAL INSPECTION - Neurological Exam Neurological exam: Alert, Oriented x3 - Psychiatric Exam Psychiatric exam: Normal Affect, Normal Mood - Skin Skin Exam: Normal Color Results - Vital Signs Recent Vital Signs: Last Vital Signs Temp 98.5 F 08/10/18 08:00 Pulse 78 08/10/18 08:00 Resp 20 08/10/18 08:00 BP 119/73 08/10/18 08:00 Pulse Ox 96 08/10/18 08:00 - Labs Result Diagrams: 08/10/18 08:15 08/10/18 08:15 Labs: Laboratory Results - last 24 hr 08/09/18 08/09/18 08/09/18 12:54 12:54 12:54 WBC 5.9 RBC 4.02 Hgb 13.1 Hct 39.0 MCV 96.9 MCH 32.7 H MCHC 33.7 RDW 14.2 Plt Count 201 MPV 8.2 Neut % (Auto) 63.1 Lymph % (Auto) 24.1 [place] % (Auto) 9.5 Eos % (Auto) 2.6 Baso % (Auto) 0.7 Neut # (Auto) 3.7 Lymph # (Auto) 1.4 [place] # (Auto) 0.6 Eos # (Auto) 0.2 Baso # (Auto) 0.0 PT 12.1 INR 1.1 APTT 36 H Sodium Potassium Chloride Carbon Dioxide Anion Gap BUN Creatinine Est GFR ( Amer) Est GFR (Non-Af Amer) Random Glucose Calcium Phosphorus Magnesium Total Bilirubin AST ALT Alkaline Phosphatase Total Protein Albumin Globulin Albumin/Globulin Ratio Urine Color Urine Clarity Urine pH Ur Specific [place] Urine Protein Urine Glucose (UA) Urine Ketones Urine Blood Urine Nitrate Urine Bilirubin Urine Urobilinogen Ur Leukocyte Esterase Urine WBC (Auto) Urine RBC (Auto) Ur Squamous Epith Cells Urine Bacteria Stool Occult Blood Blood Type A POSITIVE Antibody Screen Negative 08/09/18 08/09/18 08/09/18 13:17 13:25 13:25 WBC RBC Hgb Hct MCV MCH MCHC RDW Plt Count MPV Neut % (Auto) Lymph % (Auto) [place] % (Auto) Eos % (Auto) Baso % (Auto) Neut # (Auto) Lymph # (Auto) [place] # (Auto) Eos # (Auto) Baso # (Auto) PT INR APTT Sodium 138 Potassium 4.4 Chloride 103 Carbon Dioxide 31 H Anion Gap 8 L BUN 19 H Creatinine 0.5 L Est GFR ( Amer) > 60 Est GFR (Non-Af Amer) > 60 Random Glucose 85 Calcium 9.4 Phosphorus Magnesium Total Bilirubin 0.6 AST 39 H ALT 24 Alkaline Phosphatase 85 Total Protein 7.3 Albumin 4.0 Globulin 3.3 Albumin/Globulin Ratio 1.2 Urine Color Yellow Urine Clarity Hazy Urine pH 6.0 Ur Specific [place] 1.020 Urine Protein Negative Urine Glucose (UA) Normal Urine Ketones Negative Urine Blood 2+ H Urine Nitrate Negative Urine Bilirubin Negative Urine Urobilinogen Normal Ur Leukocyte Esterase 1+ H Urine WBC (Auto) 8 H Urine RBC (Auto) 3 Ur Squamous Epith Cells 10 H Urine Bacteria Rare Stool Occult Blood Positive H Blood Type Antibody Screen 08/09/18 08/09/18 08/10/18 16:00 19:20 08:15 WBC 6.7 4.7 L RBC 3.77 L 3.78 L Hgb 12.1 12.4 Hct 36.6 36.9 MCV 97.2 97.4 MCH 32.0 H 32.8 H MCHC 32.9 L 33.7 RDW 14.3 14.2 Plt Count 191 201 MPV 7.9 8.4 Neut % (Auto) 54.4 Lymph % (Auto) 31.4 [place] % (Auto) 9.7 Eos % (Auto) 3.4 Baso % (Auto) 1.1 Neut # (Auto) 2.5 Lymph # (Auto) 1.5 [place] # (Auto) 0.5 Eos # (Auto) 0.2 Baso # (Auto) 0.1 PT INR APTT Sodium Potassium Chloride Carbon Dioxide Anion Gap BUN Creatinine Est GFR ( Amer) Est GFR (Non-Af Amer) Random Glucose Calcium Phosphorus 2.9 Magnesium 2.2 Total Bilirubin AST ALT Alkaline Phosphatase Total Protein Albumin Globulin Albumin/Globulin Ratio Urine Color Urine Clarity Urine pH Ur Specific [place] Urine Protein Urine Glucose (UA) Urine Ketones Urine Blood Urine Nitrate Urine Bilirubin Urine Urobilinogen Ur Leukocyte Esterase Urine WBC (Auto) Urine RBC (Auto) Ur Squamous Epith Cells Urine Bacteria Stool Occult Blood Blood Type Antibody Screen 08/10/18 08:15 WBC RBC Hgb Hct MCV MCH MCHC RDW Plt Count MPV Neut % (Auto) Lymph % (Auto) [place] % (Auto) Eos % (Auto) Baso % (Auto) Neut # (Auto) Lymph # (Auto) [place] # (Auto) Eos # (Auto) Baso # (Auto) PT INR APTT Sodium 138 Potassium 4.1 Chloride 105 Carbon Dioxide 29 Anion Gap 8 L BUN 11 Creatinine 0.5 L Est GFR ( Amer) > 60 Est GFR (Non-Af Amer) > 60 Random Glucose 84 Calcium 9.0 Phosphorus 3.3 Magnesium 2.1 Total Bilirubin 0.7 AST 38 H ALT 17 Alkaline Phosphatase 72 Total Protein 6.7 Albumin 3.8 Globulin 2.9 Albumin/Globulin Ratio 1.3 Urine Color Urine Clarity Urine pH Ur Specific [place] Urine Protein Urine Glucose (UA) Urine Ketones Urine Blood Urine Nitrate Urine Bilirubin Urine Urobilinogen Ur Leukocyte Esterase Urine WBC (Auto) Urine RBC (Auto) Ur Squamous Epith Cells Urine Bacteria Stool Occult Blood Blood Type Antibody Screen Assessment & Plan (1) GI hemorrhage Assessment and Plan: Most likely from sigmoid diverticulosis. Hgb stable. Rec: advance diet as tolerated. Outpatient colonoscopy Status: Acute (2) Hypertension Status: Chronic - Date & Time Date: 08/10/18 Time: 10:47
--- NOTE | 2018-08-10 11:23 | CP.PCM.PN ---
<Cali Ferrari - Last Filed: 08/10/18 11:23> Subjective - Date & Time of Evaluation Date of Evaluation: 08/10/18 Time of Evaluation: 11:23 - Subjective Subjective: Patient seen and examined at bedside. Overnight resident started patient on Cipro/Flagyl due to CT findings. Patient stated she had blood in her stool this morning. She denies any fever, chills, SOB, or chest pain. Her abdnominal pain is only with palpation and is not at rest nor associated with food. She denies any urinary symptoms. Objective - Vital Signs/Intake and Output Vital Signs (last 24 hours): Temp Pulse Resp BP Pulse Ox 98.5 F 78 20 119/73 96 08/10/18 08:00 08/10/18 08:00 08/10/18 08:00 08/10/18 08:00 08/10/18 08:00 Intake and Output: 08/10/18 08/10/18 06:59 18:59 Intake Total 615 Balance 615 - Medications Medications: Current Medications Ciprofloxacin (Cipro 400mg/200ml Dsw) 400 mg in 200 mls @ 133 mls/hr IVPB Q12H [facility]; Protocol Last Admin: 08/10/18 01:30 Dose: 133 mls/hr Metronidazole (Flagyl) 500 mg in 100 mls @ 100 mls/hr IVPB Q8H [facility]; Protocol Last Admin: 08/10/18 10:15 Dose: 100 mls/hr Lidocaine (Lidoderm) 1 ea TD DAILY PRN PRN Reason: Back Pain Pantoprazole Sodium (Protonix Inj) 40 mg IVP Q12H [facility] Last Admin: 08/10/18 04:55 Dose: 40 mg - Labs Labs: 08/10/18 08:15 08/10/18 08:15 PT 12.1 SECONDS (9.7-12.2) 08/09/18 12:54 INR 1.1 08/09/18 12:54 APTT 36 SECONDS (21-34) H 08/09/18 12:54 Assessment and Plan - Assessment and Plan (Free Text) Assessment: 83 year old female with a PMHx of HTN, Vertigo, and Chronic Lower back Pain admitted for evaluation and treatment blood in the stool. Stool Guiac + in the ED. Plan: Sigmoid Diverticulosis. DDx: Internal Hemorrhoids, GI malignancy (Less likely), Lower GI Bleed. CT Abd/Pelvis w/ IV Contrast: Suspicious for distal rectum and anal wall thickening. Correlate clinically. Distal large bowel diffuse diverticulosis without definite evidence of diverticulitis. Consults: GI (Dr. Singletary),Recs Appreciated Labs: Monitor H/H. Mgmt: Protonix 40 IV Q12 Liquid Diet, Advance as tolerated. Hold blood thinners and NSAIDS Dizziness Likley 2/2 to Vertigo Orthostatics. Will Monitor PT Eval. Will Consider Meclizine Hx of HTN Patient is currently normotensive. Mgmt: Cont. Home Meds when confirmed Carvedilol 3.125 BID Losartan PO Lasix PO ASA 81 PO daily Hx of Chronic Back Pain Mgmt: Lidoderm Patch PRN Proph Pharmocological AntiCoag Contraindicated due Bleed Protonix 40 IV Q12H Dispo: Will F/U CT Abd/Pelvis and monitor H/H. Patient uses [facility]. Called pharmacy @ [phone] & but no answer likely closed. Asked patient to tell someone to bring from home. Talked to patient's son. He stated he will bring in the list of medications. <Edgard Hummel H - Last Filed: 08/10/18 18:54> Objective - Vital Signs/Intake and Output Vital Signs (last 24 hours): Temp Pulse Resp BP Pulse Ox 98.0 F 68 20 131/72 95 08/10/18 16:00 08/10/18 16:00 08/10/18 16:00 08/10/18 16:00 08/10/18 16:00 Intake and Output: 08/10/18 08/10/18 06:59 18:59 Intake Total 615 580 Balance 615 580 - Medications Medications: Current Medications Lidocaine (Lidoderm) 1 ea TD DAILY PRN PRN Reason: Back Pain Pantoprazole Sodium (Protonix Inj) 40 mg IVP Q12H [facility] Last Admin: 08/10/18 16:07 Dose: 40 mg - Labs Labs: 08/10/18 08:15 08/10/18 08:15 PT 12.1 SECONDS (9.7-12.2) 08/09/18 12:54 INR 1.1 08/09/18 12:54 APTT 36 SECONDS (21-34) H 08/09/18 12:54 Attending/Attestation - Attestation I have personally seen and examined this patient.: Yes I have fully participated in the care of the patient.: Yes I have reviewed all pertinent clinical information, including history, physical exam and plan: Yes Notes (Text): 08/10/18 18:48 Medical attending: Patient was seen and examined by me. Agree with the above note by the resident The patient was not in any acute distress when I came and saw her with the medical and scientific illustrator The Hgb was stable, she was ambulating in the room as well. She denied fever, denied chills She reported there was still some bright red blood when she wiped. The bleeding was painless. The CT scan suggest she does have diverticulosis but not diverticultitis. Edgard Hummel
[2018-08-11 06:58] LABS: BASO % 0.5 % (0.0-2.0); EOS # 0.2 K/uL (0.0-0.7); EOS % 4.4 % (0.0-4.0); HEMOGLOBIN 12.3 g/dL (11.0-16.0); LYMPH # 1.5 K/uL (1.0-4.3); LYMPH % 31.2 % (20.0-40.0); MEAN CELL VOLUME 96.7 fL (81.0-99.0); MEAN CORPUSCULAR HEMOGLOBIN 32.1 pg (27.0-31.0); MEAN CORPUSCULAR HGB CONC 33.2 g/dL (33.0-37.0); MEAN PLATELET VOLUME 8.1 fL (7.2-11.7); MONO # 0.6 K/uL (0.0-0.8); MONO % 12.4 % (0.0-10.0); NEUT # 2.4 K/uL (1.8-7.0); NEUT % 51.5 % (50.0-75.0); RBC 3.84 Mil/uL (3.80-5.20); RED CELL DISTRIBUTION WIDTH 13.8 % (11.5-14.5); WHITE BLOOD COUNT 4.7 K/uL (4.8-10.8)
[2018-08-11 07:17] LABS: ALB/GLOB RATIO 1.2 (1.0-2.1); ALBUMIN 3.5 g/dL (3.5-5.0); ALT/SGPT 14 U/L (9-52); AST/SGOT 36 U/L (14-36); BLOOD UREA NITROGEN 7 mg/dL (7-17); GFR NON-AFRICAN AMERICAN > 60
[2018-08-11 08:07] VITALS: BP 158/75; PULSE 75; RESP 20; TEMP 97.8; O2SAT 95
--- NOTE | 2018-08-11 08:12 | CP.PCM.PN ---
Objective - Vital Signs/Intake and Output Vital Signs (last 24 hours): Temp Pulse Resp BP Pulse Ox 97.8 F 75 20 158/75 H 95 08/11/18 08:07 08/11/18 08:07 08/11/18 08:07 08/11/18 08:07 08/11/18 08:07 Intake and Output: 08/11/18 08/11/18 06:59 18:59 Intake Total 300 Balance 300 - Medications Medications: Current Medications Lidocaine (Lidoderm) 1 ea TD DAILY PRN PRN Reason: Back Pain Pantoprazole Sodium (Protonix Inj) 40 mg IVP Q12H [facility] Last Admin: 08/11/18 05:01 Dose: 40 mg - Labs Labs: 08/11/18 06:44 08/11/18 06:44 PT 12.1 SECONDS (9.7-12.2) 08/09/18 12:54 INR 1.1 08/09/18 12:54 APTT 36 SECONDS (21-34) H 08/09/18 12:54
--- NOTE | 2018-08-11 14:02 | CP.PCM.DIS ---
Provider - Provider Date of Admission: 08/09/18 14:48 Attending physician: Swathi Sun MD Consults: 08/09/18 16:07 Gastroenterology Consult Routine Comment: Consulting Provider: Ramirez Huerta Consulting Physician: Ramirez Huerta Reason for Consult: GI BLEED. Time Spent in preparation of Discharge (in minutes): 40 Diagnosis - Discharge Diagnosis (1) Bleeding hemorrhoid Status: Acute Comment: Patient reports resolution of bleeding hemorroid, hgb stable. Hospital Course - Lab Results Lab Results: Micro Results 08/10/18 10:26 Blood-Venous Blood Culture - Preliminary NO GROWTH AFTER 24 HOURS 08/10/18 08:23 Blood-Venous Blood Culture - Preliminary NO GROWTH AFTER 24 HOURS 08/09/18 16:40 Urine Random Urine Culture - Final Gram Negative Reymundo Most Recent Lab Values WBC 4.7 K/uL (4.8-10.8) L 08/11/18 06:44 RBC 3.84 Mil/uL (3.80-5.20) 08/11/18 06:44 Hgb 12.3 g/dL (11.0-16.0) 08/11/18 06:44 Hct 37.2 % (34.0-47.0) 08/11/18 06:44 MCV 96.7 fL (81.0-99.0) 08/11/18 06:44 MCH 32.1 pg (27.0-31.0) H 08/11/18 06:44 MCHC 33.2 g/dL (33.0-37.0) 08/11/18 06:44 RDW 13.8 % (11.5-14.5) 08/11/18 06:44 Plt Count 201 K/uL (130-400) 08/11/18 06:44 MPV 8.1 fL (7.2-11.7) 08/11/18 06:44 Neut % (Auto) 51.5 % (50.0-75.0) 08/11/18 06:44 Lymph % (Auto) 31.2 % (20.0-40.0) 08/11/18 06:44 [place] % (Auto) 12.4 % (0.0-10.0) H 08/11/18 06:44 Eos % (Auto) 4.4 % (0.0-4.0) H 08/11/18 06:44 Baso % (Auto) 0.5 % (0.0-2.0) 08/11/18 06:44 Neut # (Auto) 2.4 K/uL (1.8-7.0) 08/11/18 06:44 Lymph # (Auto) 1.5 K/uL (1.0-4.3) 08/11/18 06:44 [place] # (Auto) 0.6 K/uL (0.0-0.8) 08/11/18 06:44 Eos # (Auto) 0.2 K/uL (0.0-0.7) 08/11/18 06:44 Baso # (Auto) 0.0 K/uL (0.0-0.2) 08/11/18 06:44 PT 12.1 SECONDS (9.7-12.2) 08/09/18 12:54 INR 1.1 08/09/18 12:54 APTT 36 SECONDS (21-34) H 08/09/18 12:54 Sodium 136 mmol/L (132-148) 08/11/18 06:44 Potassium 4.0 mmol/L (3.6-5.2) 08/11/18 06:44 Chloride 104 mmol/L (98-107) 08/11/18 06:44 Carbon Dioxide 29 mmol/L (22-30) 08/11/18 06:44 Anion Gap 7 (10-20) L 08/11/18 06:44 BUN 7 mg/dL (7-17) 08/11/18 06:44 Creatinine 0.5 mg/dL (0.7-1.2) L 08/11/18 06:44 Est GFR ( Amer) > 60 08/11/18 06:44 Est GFR (Non-Af Amer) > 60 08/11/18 06:44 Random Glucose 99 mg/dL (65-105) 08/11/18 06:44 Calcium 9.0 mg/dl (8.6-10.4) 08/11/18 06:44 Phosphorus 3.4 mg/dL (2.5-4.5) 08/11/18 06:44 Magnesium 2.0 mg/dL (1.6-2.3) 08/11/18 06:44 Total Bilirubin 0.6 mg/dL (0.2-1.3) 08/11/18 06:44 AST 36 U/L (14-36) 08/11/18 06:44 ALT 14 U/L (9-52) 08/11/18 06:44 Alkaline Phosphatase 65 U/L (38-126) 08/11/18 06:44 Total Protein 6.4 g/dL (6.3-8.3) 08/11/18 06:44 Albumin 3.5 g/dL (3.5-5.0) 08/11/18 06:44 Globulin 2.9 gm/dL (2.2-3.9) 08/11/18 06:44 Albumin/Globulin Ratio 1.2 (1.0-2.1) 08/11/18 06:44 Urine Color Yellow (YELLOW) 08/09/18 13:25 Urine Clarity Hazy (Clear) 08/09/18 13:25 Urine pH 6.0 (5.0-8.0) 08/09/18 13:25 Ur Specific [place] 1.020 (1.003-1.030) 08/09/18 13:25 Urine Protein Negative mg/dL (NEGATIVE) 08/09/18 13:25 Urine Glucose (UA) Normal mg/dL (Normal) 08/09/18 13:25 Urine Ketones Negative mg/dL (NEGATIVE) 08/09/18 13:25 Urine Blood 2+ (NEGATIVE) H 08/09/18 13:25 Urine Nitrate Negative (NEGATIVE) 08/09/18 13:25 Urine Bilirubin Negative (NEGATIVE) 08/09/18 13:25 Urine Urobilinogen Normal mg/dL (0.2-1.0) 08/09/18 13:25 Ur Leukocyte Esterase 1+ Andrés/uL (Negative) H 08/09/18 13:25 Urine WBC (Auto) 8 /hpf (0-5) H 08/09/18 13:25 Urine RBC (Auto) 3 /hpf (0-3) 08/09/18 13:25 Ur Squamous Epith Cells 10 /hpf (0-5) H 08/09/18 13:25 Urine Bacteria Rare (<OCC) 08/09/18 13:25 Stool Occult Blood Positive (NEGATIVE) H 08/09/18 13:17 Blood Type A POSITIVE 08/09/18 12:54 Antibody Screen Negative 08/09/18 12:54 - Hospital Course Hospital Course: HPI: Ms. Kang is 83 year old female with a PMHx of HTN, Vertigo, and Chronic Lower back Pain who presents to the hospital with complaints of bright red blood per rectum during a bowel movement this morning. Patient stated she had 3 bowel movements today. The first two were bright red blood and the 3rd one was maroon colored. She denies ever having blood in her stool. The only blood thinner she takes is aspirin. She admits not always being compliant with her medications because she doesn't like taking too many medications. She had a colonoscopy 2 years ago and she was told it was normal. She denies any lightheadedness but does complain of mild dizziness. During hospitalization, 1 small external non bleeding hemorrhoid seen. Resolution of bleeding hemorrhoid. CT abd/pelvis - suspecious distal rectum and anal wall thickening, larg bowel diffuse diverticulosis without diverticulitis. GI recommended outpatient colonoscopy. Hemoglobin stable in 12s. Patient had 1 episode of LLQ pain, resolved with passage of bowel movement. Above is only a summary of patient stay during their hospitalization, for further details, please refer to EMR. Below are discharge instructions provided to patient upon discharge: Patient is stable for discharge for discharge per Dr. Sun. Patient should follow up with PMD Dr. Hayward in 1 week Patient should continue her home medications as prescribed by primary doctor. If any of the symptoms return or worsen, please go to nearest emergency medical facility. Discharge Exam - Head Exam Head Exam: ATRAUMATIC, NORMOCEPHALIC - Eye Exam Eye Exam: EOMI, Normal appearance - ENT Exam ENT Exam: Mucous Membranes Moist - Respiratory Exam Respiratory Exam: Clear to PA & Lateral, NORMAL BREATHING PATTERN, UNREMARKABLE. absent: Rhonchi, Wheezes - Cardiovascular Exam Cardiovascular Exam: +S1, +S2. absent: Systolic Murmur - GI/Abdominal Exam GI & Abdominal Exam: Normal Bowel Sounds, Soft. absent: Firm, Guarding, Tenderness - Extremities Exam Additional comments: no pedal edema, no calf tenderness - Back Exam Back exam: absent: CVA tenderness (L), CVA tenderness (R) - Neurological Exam Neurological exam: Alert, Oriented x3 - Psychiatric Exam Psychiatric exam: Normal Affect, Normal Mood - Skin Skin Exam: Normal Color, Warm Discharge Plan - Follow Up Plan Condition: STABLE Disposition: HOME/ ROUTINE Additional Instructions: Patient is stable for discharge for discharge per Dr. Sun. Patient should follow up with PMD Dr. Hayward in 1 week Patient should continue her home medications as prescribed by primary doctor. If any of the symptoms return or worsen, please go to nearest emergency medical facility.
== END 2018-08-11 14:48 | disposition home or self-care (01) ==
LOC: C.ER 11:56 → C.9E 14:48 → C.3T 16:48
PROVIDERS: ADMIT Internal Medicine; ATTEND Internal Medicine
DX: K64.8 Other hemorrhoids (principal); K92.1 Melena; K57.30 Diverticulosis of large intestine without perforation or abscess without bleeding; I10 Essential (primary) hypertension; F41.9 Anxiety disorder, unspecified; M54.5 Low back pain; G89.29 Other chronic pain; R42 Dizziness and giddiness
CPT/HCPCS: 36415; 74177; 80053; 81001; 83735; 84100; 85025; 85027; 85610; 85730; 86850; 86900; 87040; 87086; 96365; 96366; 96367; 96375; 96376; 97110; 97116; 97162; 97530; 99285; C9113; G0328; G0378; G8978; G8979; J0744; J7030; Q9967

== ENCOUNTER 2018-09-11 08:49 | Day surgery (SDC) | payer MEDICARE, OTHER ==
[2018-09-11 09:35] VITALS: RESP 19; O2SAT 100
[2018-09-11 09:36] VITALS: BMI 27.4
[2018-09-11] MEDS ORDERED: Lactated Ringer's 1,000 ML IV ONE (10:42)
[2018-09-11] MEDS ORDERED: Etomidate 20 mg/10ml Inj IV ONE (10:45)
[2018-09-11] MEDS ORDERED: Propofol 10 mg/ml Inj (20 ML) ONE (10:45)
[2018-09-11] MEDS ORDERED: Lidocaine Hydrochloride 5 ML INJ ONE (10:45)
[2018-09-11 12:16] VITALS: BP 123/64; PULSE 73; TEMP 97.3
== END 2018-09-11 12:30 | disposition home or self-care (01) ==
LOC: C.ENDO 08:49
PROVIDERS: ATTEND Internal Medicine Gastroenterology
DX: K57.30 Diverticulosis of large intestine without perforation or abscess without bleeding (principal); K64.1 Second degree hemorrhoids; K62.5 Hemorrhage of anus and rectum; R93.3 Abnormal findings on diagnostic imaging of other parts of digestive tract; I10 Essential (primary) hypertension
CPT/HCPCS: 45378; J2405; J2704; J7120